=== PATIENT | female | born 1960 | race Caucasian/White ===

== ENCOUNTER 2017-11-16 05:17 | Observation (INO) ==
[2017-11-16] MEDS ORDERED: Sodium Chlor 0.9% Inj 500 ML IV.SIG SCH ×2 (06:00→07:00)
[2017-11-16 06:18] LABS: Baso # (Auto) 0.1 th/mm3 (0.0-0.2); Baso % (Auto) 0.9 % (0.0-2.0); Eos % (Auto) 0.5 % (0.0-4.0); Hematocrit 45.3 % (35.0-46.0); Hemoglobin 15.9 gm/dL (11.6-15.3); Lymph # (Auto) 1.3 th/mm3 (1.0-4.8); Lymph % (Auto) 18.8 % (9.0-44.0); Mean Corpuscular HGB Conc 35.1 % (32.0-36.0); Mean Corpuscular Volume 105.3 fL (80.0-100.0); Mean Platelet Volume 7.8 fL (7.0-11.0); Mono # (Auto) 0.7 th/mm3 (0.0-0.9); Mono % (Auto) 9.7 % (0.0-8.0); Neut # (Auto) 4.9 th/mm3 (1.8-7.7); Neut % (Auto) 70.1 % (16.0-70.0); Platelet Count 178 th/mm3 (150-450); Red Blood Count 4.31 mil/mm3 (4.00-5.30); Red Cell Distribution Width 12.7 % (11.6-17.2)
--- NOTE | 2017-11-16 06:21 | CT ---
EXAM DATE: 11/16/2017 6:02 AM EDT AGE/SEX: 57 years / Female INDICATIONS: Syncope. CLINICAL DATA: This is the patient's initial encounter. Patient reports that signs and symptoms have been present for 1 day and indicates a pain score of 0/10. MEDICAL/SURGICAL HISTORY: Chronic obstructive pulmonary disease. Hypertension. None. RADIATION DOSE: 56.35 CTDI (mGy) COMPARISON: No prior exams available for comparison. TECHNIQUE: CT of the head without contrast. Using automated exposure control and adjustment of the mA and/or kV according to patient size, radiation dose was kept as low as reasonably achievable to ob tain optimal diagnostic quality images. DICOM format image data is available electronically for revi ew and comparison. FINDINGS: Cerebrum: The ventricles are normal. No midline shift, mass lesion, hemorrhage or acute infarction. No extraaxial fluid collections are seen. Posterior Fossa: The cerebellum and brainstem demonstrate no acute abnormality. The 4th ventricle is midline. The cerebellopontine angle is within normal limits. Extracranial: There is partially visualized mucoperiosteal thickening in the right maxillary antrum. Remaining visualized sinuses are clear. Skull: The calvaria is intact. No skull fracture. CONCLUSION: No acute intracranial abnormality is identified. . Electronically signed by: Kareem Ríos MD 11/16/2017 6:20 AM EDT
--- NOTE | 2017-11-16 06:28 | ED ---
HPI General Chief Complaint: Syncope Stated Complaint: Syncope Time Seen by Provider: 11/16/17 06:22 Source: patient and EMS Mode of arrival: EMS Limitations: no limitations History of Present Illness HPI narrative: 56-year-old female presents to the emergency department by EMS transport for evaluation of dizziness with near syncope just prior to arrival to the emergency department. Patient states over the past several weeks she has had intermittent episodes of mild dizziness with fluttering but this was the most prolonged episode and most intense episode. Patient states she felt that she was developing tunneling of her vision and then lost her balance and fell forward hitting her left chest wall against a sign. 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 Mild sweats no shortness of breath no altered mentation. Patient did not experience any weakness right side of the body the left side of the body. Patient does have history of hypertension and has undergone sexual reassignment surgery. Patient admits to half pack of tobacco use daily. Patient has been having diarrhea on and off for approximately 2 months. Patient does not report any weight loss. Event was not witnessed. Patient does complain of left anterior chest wall pain where she struck a sign but does not have any bruising. Patient states prior to hitting her anterior chest wall with a sign she was not expressing any chest pain. Patient also has history of asthma COPD and wheezing. Patient has had cough nonproductive and does not note any fever or chills. According to outside residential sales professional report an EKG was performed which showed sinus rhythm but patient was intermittently monitored and atrial fibrillation with RVR heart rate 100-120 bpm. Patient denies any known history of atrial fibrillation. MD complaint: Reports almost passed out Onset (ago): hour(s) -: minutes(s) Description of event: Denies tonic-clonic movements, post-event confusion, focal shaking, incontinence, stopped breathing and lost pulse Prodromal symptoms: Reports lightheaded, palpitations and diaphoresis; Denies headache, vision changes, chest pain, heart racing, shortness of breath, nausea/ vomiting and vertigo Witnessed: no Context: Reports during exertion Injuries sustained associated with event: Reports chest (Left anterior chest wall) Current symptoms: Reports chest pain; Denies back to baseline, lightheaded, vertigo, headache, shortness of breath, nausea, abdominal pain, fever and weakness History: Denies seizure disorder, previous syncopal episode, seizure disorder, history of CAD, pacemaker, AICD and family history of sudden Treatments prior to arrival: Reports none Related Data Home Medications Medication Instructions Recorded Confirmed No Known Home Medications 11/16/17 11/16/17 Allergies Allergy/AdvReac Type Severity Reaction Status Date / Time Penicillins Allergy Edema Verified 11/16/17 05:29 Review of Systems ROS: all other systems reviewed are negative [facility] Medical History Medical History COPD (chronic obstructive pulmonary disease) (Acute) Chronic asthmatic bronchitis with acute exacerbation (Acute) Hypertension (Acute) Sex reassignment surgery status (Acute) Surgical History Surgical History Hx of hernia repair (Acute) Social History Social History Substance History: No History of Abuse Second Hand Smoke Exposure: Yes Smoking Status: Current every day smoker Tobacco Type: Cigarettes How Often Do You Have a Drink Containing Alcohol: 2 to 3 times a week Recent Travel in [facility] within the Last 8 Weeks: No Recent Out of Country Travel within the Last 8 Weeks: No Immunization History Tetanus Immunization: >5 Years Exam Narrative Exam Narrative: GENERAL: Well-developed well-nourished female in no acute distress no respiratory distress GCS 15 SKIN: Focused skin assessment warm/dry. HEAD: Atraumatic. Normocephalic. EYES: Pupils equal and round. No scleral icterus. No injection or drainage. ENT: No nasal bleeding or discharge. Mucous membranes pink and moist. Airway is patent. NECK: Trachea midline. No JVD. CARDIOVASCULAR: Regular rate and rhythm. No murmur appreciated. Chest wall: No ecchymosis no abrasion no induration tender to palpation left anterior chest wall and area of tenderness consistent with pain associated with deep breathing or cough. RESPIRATORY: No accessory muscle use. Clear to auscultation. Breath sounds equal bilaterally. GASTROINTESTINAL: Abdomen soft, non-tender, nondistended. Hepatic and splenic margins not palpable. MUSCULOSKELETAL: No obvious deformities. No clubbing. No cyanosis. No edema. NEUROLOGICAL: Awake and alert. No obvious cranial nerve deficits. Motor grossly within normal limits. Normal speech. PSYCHIATRIC: Appropriate mood and affect; insight and judgment normal. Course Initial Documented Vital Signs Temperature 99.0 F 11/16/17 05:29 Pulse Rate 113 H 11/16/17 05:29 Respiratory Rate 20 11/16/17 05:29 Blood Pressure 159/93 H 11/16/17 05:29 Pulse Oximetry 95 11/16/17 05:29 Last Documented Vital Signs Temperature 99.0 F 11/16/17 05:33 Pulse Rate 103 H 11/16/17 07:00 Respiratory Rate 20 11/16/17 05:33 Blood Pressure 159/93 H 11/16/17 05:33 Pulse Oximetry 95 11/16/17 06:30 Medical Decision Making MDM Narrative Medical decision making narrative: 57-year-old female with near syncope identified by EMS monitoring to have intermittent atrial fibrillation with RVR patient has been experiencing fluttering in her chest over the past several weeks to months. Patient presents with near syncope this evening and after near syncopal episode struck anterior chest wall against a sign and has had anterior chest wall pain subsequently. Patient denies any shortness of breath. Patient placed on satellite project site monitor IV access obtained specimens collected and sent for resulting patient sent for imaging study. EKG is sinus tachycardia rate is 102 with occasional PAC no atrial fibrillation at this time. No ST elevation. Medical Screen Exam Complete: Yes Emergency Medical Condition: Yes Differential Diagnosis Differential Diagnosis: Near syncope, syncope, arrhythmia, electrolyte disturbance, atrial fibrillation paroxysmal, ACS, [place], electrolyte disturbance, thyroid dysfunction, TIA, CVA, sepsis, pneumonia, PE Medical Records Medical records reviewed: Yes I reviewed the patient's medical records. No prior visit Lab Data Result diagrams: 11/16/17 06:05 11/16/17 06:05 Lab Results 11/16/17 11/16/17 11/16/17 Range/Units 06:05 06:05 06:05 WBC 7.0 (4.0-11.0) th/mm3 RBC 4.31 (4.00-5.30) mil/mm3 Hgb 15.9 H (11.6-15.3) gm/dL Hct 45.3 (35.0-46.0) % MCV 105.3 H (80.0-100.0) fL MCH 37.0 H (27.0-34.0) pg MCHC 35.1 (32.0-36.0) % RDW 12.7 (11.6-17.2) % Plt Count 178 (150-450) th/mm3 MPV 7.8 (7.0-11.0) fL Neut % (Auto) 70.1 H (16.0-70.0) % Lymph % (Auto) 18.8 (9.0-44.0) % [place] % (Auto) 9.7 H (0.0-8.0) % Eos % (Auto) 0.5 (0.0-4.0) % Baso % (Auto) 0.9 (0.0-2.0) % Neut # (Auto) 4.9 (1.8-7.7) th/mm3 Lymph # (Auto) 1.3 (1.0-4.8) th/mm3 [place] # (Auto) 0.7 (0.0-0.9) th/mm3 Eos # (Auto) 0.0 (0.0-0.4) th/mm3 Baso # (Auto) 0.1 (0.0-0.2) th/mm3 WBC Differential . Differential Comment Auto diff final PT 10.3 (9.8-11.6) sec INR 1.0 Ratio APTT 25.4 (24.3-30.1) sec D-Dimer Quant (PE/DVT) 0.53 H (0.00-0.50) mg/L FEU Sodium 139 (136-145) meq/L Potassium 3.5 (3.5-5.1) meq/L Chloride 99 (98-107) meq/L Carbon Dioxide 24.4 (21.0-32.0) meq/L Anion Gap 16 H (5-15) meq/L BUN 8 (7-18) mg/dL Creatinine 0.58 (0.50-1.00) mg/dL Estimated GFR Greater than 89 (>89) mL/min Random Glucose 118 H (74-106) mg/dL Lactic Acid (0.4-2.0) mmol/L Calcium 8.7 (8.5-10.1) mg/dL Magnesium 2.1 (1.5-2.5) mg/dL Total Bilirubin 0.9 (0.2-1.0) mg/dL AST 108 H (15-37) U/L ALT 88 H (10-53) U/L Alkaline Phosphatase 104 (45-117) U/L Troponin I Less than 0.02 L (0.02-0.05) ng/mL Total Protein 7.4 (6.4-8.2) g/dL Albumin 3.6 (3.4-5.0) g/dL TSH (0.358-3.740) uIU/mL Urine Color (Yellw/Straw) Urine Clarity (Clear) Urine pH (5.0-8.5) Ur Specific [place] (1.002-1.035) Urine Protein (Neg-Trace) mg/dL Urine Glucose (UA) (Negative) mg/dL Urine Ketones (Negative) mg/dL Urine Occult Blood (Negative) Urine Nitrate (Negative) Urine Bilirubin (Negative) Urine Urobilinogen (Less than 2) mg/dL Ur Leukocyte Esterase (Negative) Urine RBC (0-3) /hpf Ur Squamous Epith Cells (0-5) /hpf Urine Mucus (Occasional) /lpf Micro UA Comment Ur Microscopic Review Urine Culture Comments 11/16/17 11/16/17 11/16/17 Range/Units 06:15 06:30 07:50 WBC (4.0-11.0) th/mm3 RBC (4.00-5.30) mil/mm3 Hgb (11.6-15.3) gm/dL Hct (35.0-46.0) % MCV (80.0-100.0) fL MCH (27.0-34.0) pg MCHC (32.0-36.0) % RDW (11.6-17.2) % Plt Count (150-450) th/mm3 MPV (7.0-11.0) fL Neut % (Auto) (16.0-70.0) % Lymph % (Auto) (9.0-44.0) % [place] % (Auto) (0.0-8.0) % Eos % (Auto) (0.0-4.0) % Baso % (Auto) (0.0-2.0) % Neut # (Auto) (1.8-7.7) th/mm3 Lymph # (Auto) (1.0-4.8) th/mm3 [place] # (Auto) (0.0-0.9) th/mm3 Eos # (Auto) (0.0-0.4) th/mm3 Baso # (Auto) (0.0-0.2) th/mm3 WBC Differential Differential Comment PT (9.8-11.6) sec INR Ratio APTT (24.3-30.1) sec D-Dimer Quant (PE/DVT) (0.00-0.50) mg/L FEU Sodium (136-145) meq/L Potassium (3.5-5.1) meq/L Chloride (98-107) meq/L Carbon Dioxide (21.0-32.0) meq/L Anion Gap (5-15) meq/L BUN (7-18) mg/dL Creatinine (0.50-1.00) mg/dL Estimated GFR (>89) mL/min Random Glucose (74-106) mg/dL Lactic Acid 1.0 (0.4-2.0) mmol/L Calcium (8.5-10.1) mg/dL Magnesium (1.5-2.5) mg/dL Total Bilirubin (0.2-1.0) mg/dL AST (15-37) U/L ALT (10-53) U/L Alkaline Phosphatase (45-117) U/L Troponin I (0.02-0.05) ng/mL Total Protein (6.4-8.2) g/dL Albumin (3.4-5.0) g/dL TSH 2.390 (0.358-3.740) uIU/mL Urine Color [place] (Yellw/Straw) Urine Clarity Haz[place] H (Clear) Urine pH 5.0 (5.0-8.5) Ur Specific [place] 1.025 (1.002-1.035) Urine Protein 30 H (Neg-Trace) mg/dL Urine Glucose (UA) Negative (Negative) mg/dL Urine Ketones 80 or greater H (Negative) mg/dL Urine Occult Blood Negative (Negative) Urine Nitrate Negative (Negative) Urine Bilirubin Negative (Negative) Urine Urobilinogen 4 or greater (Less than 2) mg/dL Ur Leukocyte Esterase Negative (Negative) Urine RBC Less than 1 (0-3) /hpf Ur Squamous Epith Cells <1 (0-5) /hpf Urine Mucus Many H (Occasional) /lpf Micro UA Comment Culture not ind Ur Microscopic Review Not Reportable Urine Culture Comments Culture not ind Imaging Data Radiologist's impression: Head CT 11/16/17 05:58 CONCLUSION: No acute intracranial abnormality is identified. . Ribs X-Ray 11/16/17 06:21 CONCLUSION: 1. No rib fracture is identified. 2. Retrocardiac opacity at the left lung base may represent a hiatal hernia but imaging features are not diagnostic on this examination. Suggest correlating with any prior outside chest CTs to exclude a more concerning abnormality. If none are available consider elective noncontrast chest CT at some point. Chest CTA 11/16/17 07:56 CONCLUSION: 1. Masslike opacity in the left lower lobe abutting the medial pleura/ posterior mediastinum. This could be related to a mass or some sort of pulmonary sequestration. PET/CT scan recommended to evaluate hypermetabolic activity. 2. Consolidation right middle lobe likely infiltrate. 3. No evidence for pulmonary embolism. ECG Data EKG Prior to Arrival: Yes Interpretation: EKG: Sinus tachycardia rate [address] elevation or injury pattern; occasional PAC noted Discharge Plan Discharge Disposition Patient Disposition: 30 Still Patient Discharge Condition Condition: Stable Discharge Details Diagnosis: Near syncope, Arrhythmia, Lung mass Physicians Team ED Provider: Stacey Gunn Primary Care Provider: UNKNOWN, Rxs /Orders / Referrals /Forms Prescriptions: No Action No Known Home Medications RF: 0 Discharge Interventions Interventions: Vital Signs Last Done: 11/16/17 05:33 Status ED Status: With Doctor
[2017-11-16 06:37] LABS: Activated Partial Thrombo Time 25.4 sec (24.3-30.1); Prothrombin Time 10.3 sec (9.8-11.6)
[2017-11-16 06:38] LABS: Alanine Aminotransferase 88 U/L (10-53); Albumin 3.6 g/dL (3.4-5.0); Anion Gap 16 meq/L (5-15); Aspartate Aminotransferase 108 U/L (15-37); Blood Urea Nitrogen 8 mg/dL (7-18); Calcium 8.7 mg/dL (8.5-10.1); Carbon Dioxide 24.4 meq/L (21.0-32.0); Chloride 99 meq/L (98-107); D-Dimer 0.53 mg/L FEU (0.00-0.50); Glomerular Filtration Rate Greater Than 89 mL/min (>89); Glucose,Random 118 mg/dL (74-106); Magnesium 2.1 mg/dL (1.5-2.5); Potassium 3.5 meq/L (3.5-5.1); Sodium 139 meq/L (136-145)
[2017-11-16 06:42] LABS: Alkaline Phosphatase 104 U/L (45-117); Total Protein 7.4 g/dL (6.4-8.2)
[2017-11-16] MEDS ORDERED: Ketorolac Inj 30 MG/ML (IVP) Vial IV.PUSH ONE (06:42)
--- NOTE | 2017-11-16 06:59 | XR ---
EXAM DATE: 11/16/2017 6:21 AM EDT AGE/SEX: 57 years / Female INDICATIONS: Patient complains of left sided rib pain status post fall. Patient fell landing directl y on left ribs. Painful respirations. CLINICAL DATA: This is the patient's initial encounter. Patient reports that signs and symptoms have been present for 1 day and indicates a pain score of 8/10. MEDICAL/SURGICAL HISTORY: None. None. COMPARISON: No prior exams available for comparison. FINDINGS: Multiple views of the left ribs demonstrate no fracture or acute rib abnormality. No pneumothorax is identified. There is a retrocardiac opacity that does not contain any visible air. Remaining visualiz ed surrounding structures demonstrate no acute finding. CONCLUSION: 1. No rib fracture is identified. 2. Retrocardiac opacity at the left lung base may represent a hiatal hernia but imaging features are not diagnostic on this examination. Suggest correlating with any prior outside chest CTs to exclude a more concerning abnormality. If none are available consider elective noncontrast chest CT at some p oint. Electronically signed by: Kareem Ríos MD 11/16/2017 6:58 AM EDT
[2017-11-16 08:26] LABS: Bilirubin,Urine Negative (Negative); Clarity,Urine Hazy (Clear); Color,Urine Amber (Yellw/Straw); Glucose,Urine (UA) Negative (Negative); Leukocyte Esterase,Urine Negative (Negative); Mucus,Urine Many /lpf (Occasional); Nitrite,Urine Negative (Negative); Specific Gravity,Urine 1.025 (1.002-1.035); Squamous Epithelial Cell,Urine <1 /hpf (0-5); Urobilinogen,Urine 4 or Greater mg/dL (Less than 2)
--- NOTE | 2017-11-16 08:43 | CT ---
EXAM DATE: 11/16/2017 8:12 AM EDT AGE/SEX: 57 years / Female INDICATIONS: Shortness of breath, chest pain. CLINICAL DATA: This is the patient's initial encounter. Patient reports that signs and symptoms have been present for 1 day and indicates a pain score of 8/10. MEDICAL/SURGICAL HISTORY: Chronic obstructive pulmonary disease. Hypertension. None. RADIATION DOSE: 21.55 CTDI (mGy) COMPARISON: [facility], RIBS LEFT MIN 3V W EXP CHEST, 11/16/2017. . TECHNIQUE: Volumetric scanning was performed using a multi-row detector CT scanner during bolus infu ant of 75 ml Omnipaque 350 (iohexol) nonionic water-soluble contrast as a single exam dose. The phuong a was post processed with a variety of visualization algorithms including full volume maximum intensi ty projection and sliding thin slab reformation. Using automated exposure control and adjustment of t he mA and/or kV according to patient size, radiation dose was kept as low as reasonably achievable to obtain optimal diagnostic quality images. DICOM format image data is available electronically for r eview and comparison. FINDINGS: Pulmonary Arteries: No filling defects are seen in the pulmonary arteries out to the subsegmental ve ssels. The left and right pulmonary arteries are normal in diameter. Lung: Consolidation within the anteromedial right middle lobe. There is also masslike opacity within the left lower lobe medially abutting the mediastinum measuring 5.9 x 6.3 x 6.3 cm.. Effusion: None. Mediastinum: No evidence of mediastinal or hilar adenopathy. Calcified mediastinal and hilar adenopa thy. Other: The axilla is unremarkable. The liver is decreased in attenuation. CONCLUSION: 1. Masslike opacity in the left lower lobe abutting the medial pleura/posterior mediastinum. This co uld be related to a mass or some sort of pulmonary sequestration. PET/CT scan recommended to evaluate hypermetabolic activity. 2. Consolidation right middle lobe likely infiltrate. 3. No evidence for pulmonary embolism. Electronically signed by: Patrick France MD 11/16/2017 8:42 AM EDT
--- NOTE | 2017-11-16 08:46 | ECG ---
Date Performed: 11/16/2017 Time Performed: 06:00:41 PTAGE: 57 years EKG: SINUS TACHYCARDIA WITH OCCASIONAL SUPRAVENTRICULAR PREMATURE COMPLEXES ABNORMAL RHYTHM ECG NO PREVIOUS TRACING DOCTOR: Jeovany Nicholson Interpretating Date/Time 11/16/2017 08:45:37
[2017-11-16] MEDS ORDERED: Morphine Inj 4 MG/ML Vial IV.PUSH ONE (08:49)
[2017-11-16] MEDS: Sod Chloride 0.9% Inj 1,000 ML IV.CONT SCH ×2 (10:33→18:30)
--- NOTE | 2017-11-16 12:19 | US ---
EXAM DATE: 11/16/2017 12:00 AM EDT AGE/SEX: 57 years / Female INDICATIONS: Syncope. CLINICAL DATA: This is the patient's initial encounter. Patient reports that signs and symptoms have been present for 1 day and indicates a pain score of 3/10. MEDICAL/SURGICAL HISTORY: Chronic obstructive pulmonary disease. Hypertension. Sex reassignmen t surgery status. Chronic asthmatic bronchitis. . Hernia repair. COMPARISON: No prior exams available for comparison. VELOCITY PARAMETERS: ICA/CCA Ratio: Right 0.81 , Left 0.68 ICA: Right 77 cm/sec, Left 90 cm/sec CCA: Right 94 cm/sec, Left 131 cm/sec ECA: Right 95 cm/sec, Left 117 cm/sec Vertebral: Right 70 cm/sec antegrade, Left 81 cm/sec antegrade FINDINGS: Right Carotid: No significant plaque is visualized.The waveforms are within normal limits. Left Carotid: No significant plaque is visualized. The waveforms are within normal limits. Other: None. CONCLUSION: No hemodynamic significant stenosis in either carotid artery Electronically signed by: Patrick France MD 11/16/2017 12:17 PM EDT
--- NOTE | 2017-11-16 14:29 | P.HPIM ---
History of Present Illness Primary Care Physician: UNKNOWN History of Present Illness: Mrs Almeida is a 57 year old female. She has a history of HTN and COPD. 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 She is here due to a syncopal episode, which caused her some chest trauma during the fall forward. She also reports that she has been having frequent diarrhea for about 2 months. She also has persistent diaphoresis. Joni, and possibly related to her syncopal episode, she is developed bilateral ear congestion and a cough. 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 This may be responsible for a mass/anomaly seen on CTA imaging. TSH is within normal limits. Slight elevations in LFTs (drinks 2 beers per day). No other complaints. - Diagnosis (1) Syncope (2) Arrhythmia (3) Lung mass Review of Systems Constitutional: No fevers, no chills no night sweats, no fatigue, no weakness Eyes: No eye pain, no blurry vision, no loss of vision ENT: No sore throat, no ear pain, no rhinorrhea Cardiovascular: No chest pain, no tachycardia, no palpitations, no shortness of breath, syncope Respiratory: No wheezing, no cough, no shortness of breath Gastrointestinal: No abdominal pain, no black tarry stools, no bright red blood per rectum, no vomiting, no diarrhea Musculoskeletal: No joint pain, no muscle cramps, no stiffness Integumentary: No rash, no ulcers, no drainage Neurologic: No sensory loss, no loss of motor function, no dizziness Psychiatric: No behavioral changes, no hallucinations, no suicidal ideations [facility] - History History Provided By: Patient - Medical History Medical History: Medical History (Last Reviewed 11/16/17 @ 06:26 by Stacey Gunn MD) COPD (chronic obstructive pulmonary disease) Chronic asthmatic bronchitis with acute exacerbation Hypertension Sex reassignment surgery status - Surgical History Surgical History: Surgical History (Last Reviewed 11/16/17 @ 06:26 by Stacey Gunn MD) Hx of hernia repair - Family History Family History: Family History (Last Updated 11/16/17 @ 14:23 by You Kumar MD) Other Osteoarthritis - Tobacco History Second Hand Smoke Exposure: No Tobacco Use In Past 30 Days: Yes Smoking Status: Current every day smoker Tobacco Type: Cigarettes - Alcohol History How Often Do You Have a Drink Containing Alcohol: 2 to 3 times a week - Substance Use History Substance History: No History of Abuse - Travel History Recent Travel in the [place] Within the Last 8 Weeks: No Recent Travel Out of the Country Within the Last 8 Weeks: No - Immunization History Tetanus Immunization: >5 Years Medications and Allergies Active Medications: Active Medications Al Hydroxide/Mg Hydroxide (Milk Of Magnesia Liq) 30 ml PO Q12H PRN PRN Reason: Mild Constipation Sodium Chloride (Ns Inj) 500 mls @ 0 mls/hr IV.SIG BOLUS JOANA Last Infusion: 11/16/17 06:49 Dose: Infused Sodium Chloride (Ns Inj) 500 mls @ 0 mls/hr IV.SIG BOLUS JOANA Sodium Chloride (Ns Inj) 1,000 mls @ 100 mls/hr IV.CONT .Q10H JOANA Last Admin: 11/16/17 10:33 Dose: 100 mls/hr Ondansetron HCl (Zofran Inj) 4 mg IV.PUSH Q6H PRN PRN Reason: NAUSEA OR VOMITING Allergies Allergy/AdvReac Type Severity Reaction Status Date / Time Penicillins Allergy Edema Verified 11/16/17 05:29 Home Medications Medication Instructions Recorded Confirmed Type Probiotic Acidophilus 11/16/17 History Exam Vital signs: Vital Signs 11/16/17 05:29 11/16/17 05:33 11/16/17 06:30 Temperature 99.0 F 99.0 F Pulse Rate 113 H 109 H Respiratory Rate 20 20 Blood Pressure 159/93 H 159/93 H Pulse Oximetry 95 94 L 95 11/16/17 07:00 11/16/17 07:20 11/16/17 08:58 Temperature 98 F Pulse Rate 103 H 106 H Respiratory Rate 17 20 Blood Pressure 155/82 H Pulse Oximetry 97 11/16/17 09:00 11/16/17 09:30 11/16/17 10:01 Temperature 97.9 F 97.9 F Pulse Rate 101 H 100 H Respiratory Rate 20 20 20 Blood Pressure 143/82 H 147/86 H Pulse Oximetry 96 97 11/16/17 10:33 11/16/17 10:48 11/16/17 11:15 Temperature 97.8 F 98.4 F Pulse Rate 101 H 87 Respiratory Rate 20 20 Blood Pressure 143/81 H 193/90 H 148/80 H Pulse Oximetry 97 95 Intake & Output 11/15/17 11/16/17 11/16/17 18:59 06:59 18:59 Intake Total 500 / 500 Balance 500 / 500 Weight 96.162 kg 96.162 kg Intake: IV 500 / 500 NS Inj 500 ML @ Wide Open IV. 500 / 500 SIG BOLUS JOANA Rx#:[id number] Other: Date of Last Bowel Movement 11/16/17 Weight On Admission 96.162 kg Narrative: GENERAL: NAD, A&Ox3 HEAD: Normocephalic. NECK: Supple, trachea midline. No lymphadenopathy. EYES: No scleral icterus. No injection or drainage. CARDIOVASCULAR: Regular rate and rhythm without murmurs, gallops, or rubs. RESPIRATORY: Breath sounds equal bilaterally. No accessory muscle use. GASTROINTESTINAL: Abdomen soft, non-tender, nondistended. MUSCULOSKELETAL: No cyanosis, or edema. SKIN: Warm and dry. NEURO: No focal neurological deficits. Results - Labs CBC & Chem 7: 11/16/17 06:05 11/16/17 06:05 Labs: Short CBC 11/16/17 Range/Units 06:05 WBC 7.0 (4.0-11.0) th/mm3 Hgb 15.9 H (11.6-15.3) gm/dL Hct 45.3 (35.0-46.0) % Plt Count 178 (150-450) th/mm3 BMP 11/16/17 06:05 Sodium 139 Potassium 3.5 Chloride 99 Carbon Dioxide 24.4 BUN 8 Creatinine 0.58 Calcium 8.7 Cardiac Enzymes 11/16/17 Range/Units 06:05 Troponin I Less than 0.02 L (0.02-0.05) ng/mL Liver Function 11/16/17 Range/Units 06:05 Total Bilirubin 0.9 (0.2-1.0) mg/dL AST 108 H (15-37) U/L ALT 88 H (10-53) U/L Alkaline Phosphatase 104 (45-117) U/L Albumin 3.6 (3.4-5.0) g/dL Urine 11/16/17 Range/Units 07:50 Urine Color Milvia (Yellw/Straw) Urine Clarity Hazy H (Clear) Urine pH 5.0 (5.0-8.5) Ur Specific Alvin 1.025 (1.002-1.035) Urine Protein 30 H (Neg-Trace) mg/dL Urine Glucose (UA) Negative (Negative) mg/dL - Imaging Impressions Carotid Doppler Study 11/16/17 00:00 CONCLUSION: No hemodynamic significant stenosis in either carotid artery Head CT 11/16/17 05:58 CONCLUSION: No acute intracranial abnormality is identified. . Ribs X-Ray 11/16/17 06:21 CONCLUSION: 1. No rib fracture is identified. 2. Retrocardiac opacity at the left lung base may represent a hiatal hernia but imaging features are not diagnostic on this examination. Suggest correlating with any prior outside chest CTs to exclude a more concerning abnormality. If none are available consider elective noncontrast chest CT at some point. Chest CTA 11/16/17 07:56 CONCLUSION: 1. Masslike opacity in the left lower lobe abutting the medial pleura/ posterior mediastinum. This could be related to a mass or some sort of pulmonary sequestration. PET/CT scan recommended to evaluate hypermetabolic activity. 2. Consolidation right middle lobe likely infiltrate. 3. No evidence for pulmonary embolism. Caprini VTE Risk Assessment Caprini VTE Risk Assessment: No/Low Risk (score <= 1) Caprini Risk Assessment Model: Point Value = 1 Point Value = 2 Point Value = 3 Point Value = 5 Age 41-60 Minor surgery BMI > 25 kg/m2 Swollen legs Varicose veins or History of unexplained or recurrent spontaneous Oral contraceptives or hormone replacement Sepsis (< 1 month) Serious lung disease, including pneumonia (< 1 month) Abnormal pulmonary function Acute myocardial infarction Congestive heart failure (< 1 month) History of inflammatory bowel disease Medical patient at bed rest Age 61-74 Arthroscopic surgery Major open surgery (> 45 min) Laparoscopic surgery (> 45 min) Malignancy Confined to bed (> 72 hours) Immobilizing plaster cast Central venous access Age >= 75 History of VTE Family history of VTE Factor V Leiden Prothrombin [id number] Lupus anticoagulant Anticardiolipin antibodies Elevated serum homocysteine Heparin-induced thrombocytopenia Other congenital or acquired thrombophilia Stroke (< 1 month) Elective arthroplasty Hip, pelvis, or leg fracture Acute spinal cord injury (< 1 month) Prophylaxis Regimen: Total Risk Factor Score Risk Level Prophylaxis Regimen 0-1 Low Early ambulation 2 Moderate Order ONE of the following: *Sequential Compression Device (SCD) *Heparin 5000 units SQ BID 3-4 Higher Order ONE of the following medications: *Heparin 5000 units SQ TID *Enoxaparin/Lovenox 40 mg SQ daily (WT < 150 kg, CrCl > 30 mL/min) *Enoxaparin/Lovenox 30 mg SQ daily (WT < 150 kg, CrCl > 10-29 mL/min) *Enoxaparin/Lovenox 30 mg SQ BID (WT < 150 kg, CrCl > 30 mL/min) AND/OR *Sequential Compression Device (SCD) 5 or more Highest Order ONE of the following medications: *Heparin 5000 units SQ TID (Preferred with Epidurals) *Enoxaparin/Lovenox 40 mg SQ daily (WT < 150 kg, CrCl > 30 mL/min) *Enoxaparin/Lovenox 30 mg SQ daily (WT < 150 kg, CrCl > 10-29 mL/min) *Enoxaparin/Lovenox 30 mg SQ BID (WT < 150 kg, CrCl > 30 mL/min) AND *Sequential Compression Device (SCD) Assessment and Plan - Assessment (1) Syncope Code(s): R55 - Syncope and collapse Status: Acute (2) Arrhythmia Code(s): I49.9 - Cardiac arrhythmia, unspecified Status: Acute (3) Lung mass Code(s): R91.8 - Other nonspecific abnormal finding of lung field Status: Acute - Plan 57-year-old female admitted secondary to syncopal episode Syncope Possible Arrhythmia Echocardiogram Bilateral carotid ultrasound shows no stenosis Orthostatic blood pressure checks pending Follow on telemetry Lung Mass Present on CTA of chest May be congenital based on history NM Bone scan added for further evaluation of metabolic activity Chronic Diarrhea Screen for C. Diff Screen for O&P Follow electrolytes Lomotil trial Chronic Diaphoresis TSH is within normal limits today Check estrogen and testosterone levels (patient is transgendered) Screen for tick bourne illnesses Sinus congestion Bronchitis No evidence of bacterial infection Antihistamine Antitussive PRN Hypertension Continue baseline treatment Follow blood pressures Adjust treatments as needed As needed Vasotec IV COPD As needed albuterol No exacerbation DVT prophylaxis SCDs H&P: Quality - VTE Deep Vein Thrombosis/Pulmonary Embolism Present on Admission: No
[2017-11-16] MEDS ORDERED: RESP: Albuterol Concentrated 2.5 MG/0.5 ML Neb NEB PRN (17:02)
--- NOTE | 2017-11-16 17:54 | ECHRPT ---
Indication: Syncope CONCLUSIONS The left ventricular systolic function is normal with an estimated ejection fraction in the range of 55-60%. No regional wall motion abnormalities. Grade 1 Diastolic Dysfunction. The left atrial size is mildly dilated. No significant valve disease. The estimated pulmonary arterial pressure is 41 mmHg. BP: / HR: Rhythm: MEASUREMENTS (Male / Female) Normal Values Technical Quality:Technically difficult study 2D ECHO LV Diastolic Diameter PLAX 4.8 cm 4.2 - 5.9 / 3.9 - 5.3 cm LV Systolic Diameter PLAX 3.4 cm IVS Diastolic Thickness 1.2 cm 0.6 - 1.0 / 0.6 - 0.9 cm LVPW Diastolic Thickness 1.3 cm 0.6 - 1.0 / 0.6 - 0.9 cm LV Relative Wall Thickness 0.5 RV Internal Dim ED PLAX 2.8 cm LVOT Diameter 2.2 cm Aortic Root Diameter 3.1 cm LA Systolic Diameter LX 4.0 cm 3.0 - 4.0 / 2.7 - 3.8 cm M-MODE AV Cusp Separation MM 2.2 cm DOPPLER AV Peak Velocity 125.0 cm/s AV Peak Gradient 6.3 mmHg LVOT Peak Velocity 111.0 cm/s LVOT Peak Gradient 4.9 mmHg AV Area Cont Eq pk 3.4 cm Mitral E Point Velocity 54.3 cm/s Mitral A Point Velocity 71.1 cm/s Mitral E to A Ratio 0.8 LV E' Lateral Velocity 9.1 cm/s Mitral E to LV E' Lateral Ratio 6.0 LV E' Septal Velocity 6.9 cm/s Mitral E to LV E' Septal Ratio 7.8 TR Peak Velocity 278.0 cm/s TR Peak Gradient 30.9 mmHg Right Atrial Pressure 10.0 mmHg Pulmonary Artery Systolic Pressu 40.9 mmHg Right Ventricular Systolic Press 40.9 mmHg PV Peak Velocity 102.0 cm/s PV Peak Gradient 4.2 mmHg FINDINGS LEFT VENTRICLE Normal left ventricular size. Mild concentric left ventricular hypertrophy. The left ventricular systolic function is normal with an estimated ejection fraction in the range of 55-60%. RIGHT VENTRICLE Normal right ventricular size and systolic function. LEFT ATRIUM The left atrial size is mildly dilated. RIGHT ATRIUM The right atrial size is normal. ATRIAL SEPTUM Normal atrial septal thickness without atrial level shunting by limited color doppler interrogation. AORTA The aortic root and proximal ascending aorta are normal in size on limited imaging. MITRAL VALVE Structurally normal mitral valve. No mitral valve stenosis or regurgitation. AORTIC VALVE Trileaflet aortic valve. No aortic valve stenosis or regurgitation. TRICUSPID VALVE There is trace tricuspid valve regurgitation. The estimated pulmonary arterial pressure is 41 mmHg. PULMONARY VALVE No pulmonary valve regurgitation or stenosis. VESSELS The inferior vena cava is normal in size. PERICARDIUM No pericardial effusion. Tali Ortiz MD (Electronically Signed) Final Date:16 November 2017 17:53
[2017-11-16] MEDS: Diphenoxylate/Atropine 2.5/0.025 MG Tablet PO SCH (18:30)
[2017-11-16 19:34] LABS: Amphetamine Screen,Urine Neg (Neg); Barbiturate Screen,Urine Neg (Neg); Cannabinoid Screen,Urine Neg (Neg); Cocaine Screen,Urine Neg (Neg)
[2017-11-16 19:45] LABS: Opiate Screen,Urine Neg (Neg)
[2017-11-16] MEDS: Loratadine 10 MG Tablet PO SCH (20:30)
[2017-11-16 23:21] LABS: Hepatitis A IgM Antibody Nonreactive (Nonreactive); Hepatitits B Surface Antigen Nonreactive (Nonreactive)
[2017-11-17] MEDS: Diphenoxylate/Atropine 2.5/0.025 MG Tablet PO SCH ×3 (00:49→11:55)
[2017-11-17] MEDS: Melatonin 5 MG Tablet PO PRN (01:22)
[2017-11-17] MEDS: Sod Chloride 0.9% Inj 1,000 ML IV.CONT SCH ×3 (05:16→18:51)
[2017-11-17] MEDS: Loratadine 10 MG Tablet PO SCH (09:12)
[2017-11-17] MEDS ORDERED: Naloxone Inj 0.4 MG/ML Vial IV.PUSH PRN (13:13)
[2017-11-17] MEDS ORDERED: Morphine Sulfate Inj 2 MG/ML Vial IV.PUSH PRN (13:13)
[2017-11-17] MEDS ORDERED: Diatrizoate Meglum/Diatrizoate Sod Liq 9 ML UDC PO ONE (14:54)
--- NOTE | 2017-11-17 15:32 | NM ---
INDICATIONS: Neoplasm. Evaluate for hyperactivity at left lung and/or metastatic evidence. CLINICAL DATA: This is the patient's initial encounter. Patient reports that signs and symptoms have been present for 1 week and indicates a pain score of 2/10. MEDICAL/SURGICAL HISTORY: Chronic obstructive pulmonary disease. Hypertension. Chronic asthmat ic bronchitis with acute exacerbation. . History of hernia repair. Sex reassignment surgery status. COMPARISON: No prior exams available for comparison. TECHNIQUE: . Blood pool imaging was performed after injection of radiotracer.. Whole body bone scan was performed at 2-3 hours. No correlative bone scan available for comparison. DOSE: 30.2 mCi Tc99m MDP IV FINDINGS: Whole body bone scan demonstrates no suspicious uptake in the axial or appendicular skeleton. There i s symmetrical renal function. No focal areas of increased or decreased uptake are seen. CONCLUSION: 1. Negative whole body bone scan of metastatic disease Electronically signed by: Anthony Padilla MD 11/17/2017 3:31 PM EDT
--- NOTE | 2017-11-17 15:37 | P.CONGI ---
History of Present Illness Consult date: 11/17/17 Consult reason: Elevated liver enzymes, abdominal bloating Chief complaint: Near Syncope,suspected new onset afib,lung mass History of Present Illness: Mrs. Almeida is a 57-year-old female with a medical history of hypertension and COPD. Patient presented to the emergency room at [facility] on 11/16 with complaint of having had a syncopal episode, with chest wall discomfort after falling forward. At this time patient also reported that she has been having loose watery stools for 2-1/2 months with abdominal bloating. This service has been consulted to evaluate patient's elevated liver enzymes as well as abdominal bloating. Patient also reports increasing diaphoresis and nausea without vomiting over a 2-month time span. She reports using Pepto- Bismol with [id number] probiotics with no improvement of symptoms. Patient denies any noted bleeding in stools. Patient reports occasional heartburn whenever she eats tomato based products, denies taking any medication for same states she just "avoids the triggers". Patient denies any dysphagia or odynophagia with swallowing. Does endorse that she has history of hiatal hernia. Family history positive for colon cancer-patient's father. Patient reports that she smokes 1/2 pack/day cigarettes and drinks 2 beers daily each morning after work. 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 Patient denies ever having had an EGD or colonoscopy. 11/16/2017 CT chest performed with the following findings--> Masslike opacity in the left lower lobe abutting the medial pleura/posterior mediastinum. This could be related to a mass or some sort of pulmonary sequestration. PET/CT scan recommended to evaluate hypermetabolic activity. Consolidation right middle lobe likely infiltrate. No evidence for pulmonary embolism . Of note patient states that she was diagnosed with a cyst in her chest as a child. CT scan of abdomen and pelvis ordered and pending at this time. WBC 7.0 hemoglobin 15.9 hematocrit 45.3 platelet count 178 INR 1.0 total bilirubin 0.9 AST 108 ALT 88 alk phos 104. <Stephanie Soliz - Last Filed: 11/17/17 15:08> Review of Systems All other systems reviewed negative except as stated in HPI <Stephanie Soliz - Last Filed: 11/17/17 15:08> PMFSH - History History Provided By: Patient - Medical History Medical History: Medical History (Last Reviewed 11/16/17 @ 06:26 by Stacey Gunn MD) COPD (chronic obstructive pulmonary disease) Chronic asthmatic bronchitis with acute exacerbation Hypertension Sex reassignment surgery status - Surgical History Surgical History: Surgical History (Last Reviewed 11/16/17 @ 06:26 by Stacey Gunn MD) Hx of hernia repair - Family History Family History: Family History (Last Updated 11/16/17 @ 14:23 by You Kumar MD) Other Osteoarthritis - Tobacco History Second Hand Smoke Exposure: No Tobacco Use In Past 30 Days: Yes Smoking Status: Current every day smoker Tobacco Type: Cigarettes - Alcohol History How Often Do You Have a Drink Containing Alcohol: 2 to 3 times a week - Substance Use History Substance History: No History of Abuse - Travel History Recent Travel in the [place] Within the Last 8 Weeks: No Recent Travel Out of the Country Within the Last 8 Weeks: No - Immunization History Tetanus Immunization: >5 Years <Stephanie Soliz - Last Filed: 11/17/17 15:08> - Medical History Medical History: Medical History (Last Reviewed 11/16/17 @ 06:26 by Stacey Gunn MD) COPD (chronic obstructive pulmonary disease) Chronic asthmatic bronchitis with acute exacerbation Hypertension Sex reassignment surgery status - Surgical History Surgical History: Surgical History (Last Reviewed 11/16/17 @ 06:26 by Stacey Gunn MD) Hx of hernia repair - Family History Family History: Family History (Last Updated 11/16/17 @ 14:23 by You Kumar MD) Other Osteoarthritis <Bobbi Durant - Last Filed: 11/17/17 15:54> Medications and Allergies Active Medications: Active Medications Hydrocodone Bitart/Acetaminophen ([place] 5/325) 1 tab PO Q4H PRN PRN Reason: Pain 3 to 6 Hydrocodone Bitart/Acetaminophen ([place] 10/325) 1 tab PO Q4H PRN PRN Reason: Pain 7 to 10 Last Admin: 11/17/17 11:54 Dose: 1 tab Al Hydroxide/Mg Hydroxide (Milk Of Magnesia Liq) 30 ml PO Q12H PRN PRN Reason: Mild Constipation Albuterol (Duoneb Neb (Prn)) 1 ampul NEB Q6HR NEB PRN PRN Reason: WHEEZING Enalaprilat (Vasotec Inj) 1.25 mg IV.PUSH Q6H PRN PRN Reason: SBP>160, DBP>90 Guaifenesin (Robitussin Liq) 100 mg PO Q6HR PRN PRN Reason: COUGH Last Admin: 11/17/17 09:14 Dose: 100 mg Sodium Chloride (Ns Inj) 500 mls @ 0 mls/hr IV.SIG BOLUS JOANA Last Infusion: 11/16/17 06:49 Dose: Infused Sodium Chloride (Ns Inj) 500 mls @ 0 mls/hr IV.SIG BOLUS JOANA Sodium Chloride (Ns Inj) 1,000 mls @ 100 mls/hr IV.CONT .Q10H JOANA Last Infusion: 11/17/17 13:40 Dose: 0 mls/hr Loratadine (Claritin) 10 mg PO DAILY JOANA Last Admin: 11/17/17 09:12 Dose: 10 mg Melatonin (Melatonin) 5 mg PO HS PRN PRN Reason: INSOMNIA Last Admin: 11/17/17 01:22 Dose: 5 mg Morphine Sulfate (Morphine Inj) 2 mg IV.PUSH Q3H PRN PRN Reason: BREAKTHROUGH PAIN Last Admin: 11/17/17 14:17 Dose: 2 mg Naloxone HCl (Narcan Inj) 0.4 mg IV.PUSH UNSCH PRN PRN Reason: SEE LABEL COMMENTS Ondansetron HCl (Zofran Inj) 4 mg IV.PUSH Q6H PRN PRN Reason: NAUSEA OR VOMITING <Stephanie Soliz - Last Filed: 11/17/17 15:08> Active Medications: Active Medications Hydrocodone Bitart/Acetaminophen ([place] 5/325) 1 tab PO Q4H PRN PRN Reason: Pain 3 to 6 Hydrocodone Bitart/Acetaminophen ([place] 10/325) 1 tab PO Q4H PRN PRN Reason: Pain 7 to 10 Last Admin: 11/17/17 11:54 Dose: 1 tab Al Hydroxide/Mg Hydroxide (Milk Of Magnesia Liq) 30 ml PO Q12H PRN PRN Reason: Mild Constipation Albuterol (Duoneb Neb (Prn)) 1 ampul NEB Q6HR NEB PRN PRN Reason: WHEEZING Enalaprilat (Vasotec Inj) 1.25 mg IV.PUSH Q6H PRN PRN Reason: SBP>160, DBP>90 Guaifenesin (Robitussin Liq) 100 mg PO Q6HR PRN PRN Reason: COUGH Last Admin: 11/17/17 09:14 Dose: 100 mg Sodium Chloride (Ns Inj) 500 mls @ 0 mls/hr IV.SIG BOLUS JOANA Last Infusion: 11/16/17 06:49 Dose: Infused Sodium Chloride (Ns Inj) 500 mls @ 0 mls/hr IV.SIG BOLUS JOANA Sodium Chloride (Ns Inj) 1,000 mls @ 100 mls/hr IV.CONT .Q10H JOANA Last Admin: 11/17/17 15:32 Dose: Not Given Loratadine (Claritin) 10 mg PO DAILY JOANA Last Admin: 11/17/17 09:12 Dose: 10 mg Melatonin (Melatonin) 5 mg PO HS PRN PRN Reason: INSOMNIA Last Admin: 11/17/17 01:22 Dose: 5 mg Morphine Sulfate (Morphine Inj) 2 mg IV.PUSH Q3H PRN PRN Reason: BREAKTHROUGH PAIN Last Admin: 11/17/17 14:17 Dose: 2 mg Naloxone HCl (Narcan Inj) 0.4 mg IV.PUSH UNSCH PRN PRN Reason: SEE LABEL COMMENTS Ondansetron HCl (Zofran Inj) 4 mg IV.PUSH Q6H PRN PRN Reason: NAUSEA OR VOMITING <Bobbi Durant - Last Filed: 11/17/17 15:54> Allergies Allergy/AdvReac Type Severity Reaction Status Date / Time Penicillins Allergy Edema Verified 11/16/17 05:29 Home Medications Medication Instructions Recorded Confirmed Type Probiotic Acidophilus 11/16/17 History Exam Vital signs: Vital Signs 11/16/17 16:21 11/16/17 19:50 11/16/17 20:00 Temperature 97.8 F 98.3 F Pulse Rate 81 100 H 92 H Respiratory Rate 20 18 Blood Pressure 153/88 H 138/76 Pulse Oximetry 92 L 95 11/16/17 20:29 11/17/17 00:00 11/17/17 00:49 Temperature 97.8 F Pulse Rate 90 Respiratory Rate 16 18 18 Blood Pressure 139/87 Pulse Oximetry 93 L 11/17/17 04:00 11/17/17 08:00 11/17/17 12:00 Temperature 97.8 F 97.8 F 98.3 F Pulse Rate 81 78 86 Respiratory Rate 18 18 18 Blood Pressure 138/86 135/83 141/87 H Pulse Oximetry 97 95 92 L Intake & Output 11/16/17 11/17/17 11/17/17 18:59 06:59 18:59 Intake Total 1369 / 1369 1000 / 1000 Balance 1369 / 1369 1000 / 1000 Weight 96.162 kg Intake: IV 769 / 769 1000 / 1000 NS Inj 1,000 ML @ 100 mls/hr IV 769 / 769 1000 / 1000 .CONT .Q10H JOANA Rx#:[id number] Oral 600 / 600 Other: # Voids 3 Date of Last Bowel Movement 11/16/17 11/16/17 11/16/17 Weight On Admission 96.162 kg - Constitutional no acute distress - Routine HEENT Exam Head: Present: normocephalic Eye: Absent: conjunctival icterus - Routine Neck Exam Present: supple - Routine Chest/Breast/Axilla Exam Chest wall: Present: tenderness - Routine Respiratory Exam Present: CTA bilaterally. Absent: accessory muscle use - Routine Abdominal Exam Present: soft, normoactive bowel sounds, distended. Absent: tenderness, guarding - Routine Extremities Exam Present: full ROM, pulses intact. Absent: edema - Routine Skin Exam Present: dry, warm. Absent: jaundice - Routine Neurological Exam Present: alert, oriented X3 <Soliz,Stephanie - Last Filed: 11/17/17 15:08> Vital signs: Vital Signs 11/16/17 16:21 11/16/17 19:50 11/16/17 20:00 Temperature 97.8 F 98.3 F Pulse Rate 81 100 H 92 H Respiratory Rate 20 18 Blood Pressure 153/88 H 138/76 Pulse Oximetry 92 L 95 11/16/17 20:29 11/17/17 00:00 11/17/17 00:49 Temperature 97.8 F Pulse Rate 90 Respiratory Rate 16 18 18 Blood Pressure 139/87 Pulse Oximetry 93 L 11/17/17 04:00 11/17/17 08:00 11/17/17 12:00 Temperature 97.8 F 97.8 F 98.3 F Pulse Rate 81 78 86 Respiratory Rate 18 18 18 Blood Pressure 138/86 135/83 141/87 H Pulse Oximetry 97 95 92 L Intake & Output 11/16/17 11/17/17 11/17/17 18:59 06:59 18:59 Intake Total 1369 / 1369 1000 / 1000 Balance 1369 / 1369 1000 / 1000 Weight 96.162 kg Intake: IV 769 / 769 1000 / 1000 NS Inj 1,000 ML @ 100 mls/hr IV 769 / 769 1000 / 1000 .CONT .Q10H JOANA Rx#:[id number] Oral 600 / 600 Other: # Voids 3 Date of Last Bowel Movement 11/16/17 11/16/17 11/16/17 Weight On Admission 96.162 kg <Bobbi Durant - Last Filed: 11/17/17 15:54> Results - Labs CBC & Chem 7: 11/16/17 06:05 11/16/17 06:05 Labs: Laboratory Results - last 24 hr 11/16/17 11/16/17 11/16/17 06:46 07:50 18:58 POC Glucose 133 H Stl C.difficile DNA Amp Negative St C. diff Tox Epid 027 Negative Urine Opiates Screen Neg Ur Barbiturates Screen Neg Ur Amphetamines Screen Neg U Benzodiazepines Scrn Neg Urine Cocaine Screen Neg U Cannabinoids Screen Neg Hepatitis A IgM Ab Hep Bs Antigen Hep B Core IgM Ab Hep C IgG Ab 11/16/17 21:23 POC Glucose Stl C.difficile DNA Amp St C. diff Tox Epid 027 Urine Opiates Screen Ur Barbiturates Screen Ur Amphetamines Screen U Benzodiazepines Scrn Urine Cocaine Screen U Cannabinoids Screen Hepatitis A IgM Ab Nonreactive Hep Bs Antigen Nonreactive Hep B Core IgM Ab Nonreactive Hep C IgG Ab Nonreactive <Stephanie Soliz - Last Filed: 11/17/17 15:08> - Labs CBC & Chem 7: 11/16/17 06:05 11/16/17 06:05 Labs: Laboratory Results - last 24 hr 11/16/17 11/16/17 11/16/17 06:46 07:50 18:58 POC Glucose 133 H Stl C.difficile DNA Amp Negative St C. diff Tox Epid 027 Negative Urine Opiates Screen Neg Ur Barbiturates Screen Neg Ur Amphetamines Screen Neg U Benzodiazepines Scrn Neg Urine Cocaine Screen Neg U Cannabinoids Screen Neg Hepatitis A IgM Ab Hep Bs Antigen Hep B Core IgM Ab Hep C IgG Ab 11/16/17 21:23 POC Glucose Stl C.difficile DNA Amp St C. diff Tox Epid 027 Urine Opiates Screen Ur Barbiturates Screen Ur Amphetamines Screen U Benzodiazepines Scrn Urine Cocaine Screen U Cannabinoids Screen Hepatitis A IgM Ab Nonreactive Hep Bs Antigen Nonreactive Hep B Core IgM Ab Nonreactive Hep C IgG Ab Nonreactive - Imaging Impressions Bone Scan Nuclear Medicine 11/17/17 00:00 CONCLUSION: 1. Negative whole body bone scan of metastatic disease <Bobbi Durant - Last Filed: 11/17/17 15:54> Assessment and Plan (1) Elevated liver enzymes Status: Acute Code(s): R74.8 - Abnormal levels of other serum enzymes (2) Abdominal bloating Status: Acute Code(s): R14.0 - Abdominal distension (gaseous) - Plan Mrs. Almeida is a 57-year-old female with a medical history of hypertension and COPD. Patient presented to the emergency room at [facility] on 11/16 with complaint of having had a syncopal episode, with chest wall discomfort after falling forward. At this time patient also reported that she has been having loose watery stools for 2-1/2 months with abdominal bloating. Denies any noted fever or chills. This service has been consulted to evaluate patient's elevated liver enzymes as well as abdominal bloating. Patient also reports increasing diaphoresis and nausea without vomiting over a 2-month time span. She reports using Pepto-Bismol with [id number]-[id number] probiotics with no improvement of symptoms. Patient denies any noted bleeding in stools. Patient reports occasional heartburn whenever she eats tomato based products, denies taking any medication for same states she just "avoids the triggers". Patient denies any dysphagia or odynophagia with swallowing. Does endorse that she has history of hiatal hernia. Family history positive for colon cancer-patient's father. Patient reports that she smokes 1/2 pack/day cigarettes and drinks 2 beers daily each morning after work. 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 Patient denies ever having had an EGD or colonoscopy. 11/16/2017 CT chest performed with the following findings--> Mass-like opacity in the left lower lobe abutting the medial pleura/posterior mediastinum. This could be related to a mass or some sort of pulmonary sequestration. PET/CT scan recommended to evaluate hypermetabolic activity. Consolidation right middle lobe likely infiltrate. No evidence for pulmonary embolism . Of note patient states that she was diagnosed with a cyst in her chest as a child. CT scan of abdomen and pelvis ordered and pending at this time, patient drinking oral contrast for same. WBC 7.0 hemoglobin 15.9 hematocrit 45.3 platelet count 178 INR 1.0 total bilirubin 0.9 AST 108 ALT 88 alk phos 104. Elevated liver enzymes and Abdominal bloating Total bilirubin 0.9 AST 108 ALT 88 alk phos 104. Patient denies any known history of liver disease. She endorses drinking 2 beers daily for approximately [address] abdomen and pelvis pending. We will proceed with liver workup and stool studies. No BM since admission per patient. Plan -Diet as tolerated -Monitor labs -CT abdomen and pelvis-results pending -Stool studies -Liver workup -Analgesics and antiemetics as per attending -Supportive care -Further recommendations to follow based on patient status and findings This patient has been seen by myself and Dr. Durant and this note is written on his behalf - Attending Attestation Dr. Durant <Stephanie Soliz - Last Filed: 11/17/17 15:08> (1) Elevated liver enzymes Status: Acute Code(s): R74.8 - Abnormal levels of other serum enzymes (2) Abdominal bloating Status: Acute Code(s): R14.0 - Abdominal distension (gaseous) - Plan Seen and examined with CHURNER, Liver granado ordered. Await ct abd/pelvis. The exam, history, and the medical decision-making described in the above note were completed with the assistance of the mid-level provider. I reviewed and agree with the findings presented. I attest that I had a [id number] encounter with the patient on the same day, and personally performed and documented my assessment and findings in the medical record. <Bobbi Durant - Last Filed: 11/17/17 15:54>
[2017-11-17 17:33] LABS: Alpha Fetoprotein Tumor Marker 4.6 ng/mL (0.5-8.0); Carcinoembryonic Antigen 3.7 ng/mL (0.2-5.0)
--- NOTE | 2017-11-17 17:34 | P.PN ---
Subjective Interval history: Patient is seen sitting up in bed. She reports continued episodes of diaphoresis. Also experiencing tenderness in the left chest wall. No exertional chest pain. Shortness of breath when lying down but not when sitting up. Abdominal bloating and fullness. She has had diarrhea for 2 months and has been unable to get it to resolve on her own. No nausea or vomiting at this time. No recent hormone use-last hormone use 3 years ago. She has not seen primary care in over 4 years. Also reports intermittent mild dizziness that feels like the room is spinning or moving around her. Physical Exam Vital signs: Vital Signs 11/16/17 19:50 11/16/17 20:00 11/16/17 20:29 Temperature 98.3 F Pulse Rate 100 H 92 H Respiratory Rate 18 16 Blood Pressure 138/76 Pulse Oximetry 95 11/17/17 00:00 11/17/17 00:49 11/17/17 04:00 Temperature 97.8 F 97.8 F Pulse Rate 90 81 Respiratory Rate 18 18 18 Blood Pressure 139/87 138/86 Pulse Oximetry 93 L 97 11/17/17 08:00 11/17/17 12:00 11/17/17 16:00 Temperature 97.8 F 98.3 F 98.8 F Pulse Rate 78 86 82 Respiratory Rate 18 18 18 Blood Pressure 135/83 141/87 H 133/84 Pulse Oximetry 95 92 L 95 Intake & Output 11/16/17 11/17/17 11/17/17 18:59 06:59 18:59 Intake Total 1369 / 1369 1000 / 1000 Balance 1369 / 1369 1000 / 1000 Weight 96.162 kg Intake: IV 769 / 769 1000 / 1000 NS Inj 1,000 ML @ 100 mls/hr IV 769 / 769 1000 / 1000 .CONT .Q10H JOANA Rx#:[id number] Oral 600 / 600 Other: # Voids 3 Date of Last Bowel Movement 11/16/17 11/16/17 11/16/17 Weight On Admission 96.162 kg Narrative: GENERAL: Well-nourished, well-developed adult female in no obvious distress. SKIN: Diaphoretic. Neck: No appreciable adenopathy however body habitus makes this difficult. HEAD: Atraumatic. Normocephalic. CARDIOVASCULAR: Regular rate and rhythm. RESPIRATORY: No accessory muscle use. Mild wheezing. Breath sounds equal bilaterally. GASTROINTESTINAL: Abdomen soft, non-tender, distended. Positive bowel sounds. MUSCULOSKELETAL: Extremities without clubbing, cyanosis, or edema. No obvious deformities. Toes cool to touch; pedal pulses palpable. NEUROLOGICAL: Awake and alert. No obvious cranial nerve deficits. Motor grossly within normal limits. Normal speech. PSYCHIATRIC: Appropriate mood and affect; insight and judgment good. Results - Labs CBC & Chem 7: 11/16/17 06:05 11/16/17 06:05 Laboratory Results - last 24 hr 11/16/17 11/16/17 11/16/17 06:46 07:50 18:58 POC Glucose 133 H Stl C.difficile DNA Amp Negative St C. diff Tox Epid 027 Negative Urine Opiates Screen Neg Ur Barbiturates Screen Neg Ur Amphetamines Screen Neg U Benzodiazepines Scrn Neg Urine Cocaine Screen Neg U Cannabinoids Screen Neg Hepatitis A IgM Ab Hep Bs Antigen Hep B Core IgM Ab Hep C IgG Ab 11/16/17 21:23 POC Glucose Stl C.difficile DNA Amp St C. diff Tox Epid 027 Urine Opiates Screen Ur Barbiturates Screen Ur Amphetamines Screen U Benzodiazepines Scrn Urine Cocaine Screen U Cannabinoids Screen Hepatitis A IgM Ab Nonreactive Hep Bs Antigen Nonreactive Hep B Core IgM Ab Nonreactive Hep C IgG Ab Nonreactive Microbiology 11/16/17 06:15 Blood - Peripheral Aerobic Blood Culture - Preliminary No growth in 1 day 11/16/17 06:15 Blood - Peripheral Anaerobic Blood Culture - Preliminary No growth in 1 day 11/16/17 06:10 Blood - Peripheral Aerobic Blood Culture - Preliminary No growth in 1 day 11/16/17 06:10 Blood - Peripheral Anaerobic Blood Culture - Preliminary No growth in 1 day - Imaging Impressions Bone Scan Nuclear Medicine 11/17/17 00:00 CONCLUSION: 1. Negative whole body bone scan of metastatic disease Assessment and Plan - Assessment (1) Syncope Code(s): R55 - Syncope and collapse Status: Acute (2) Arrhythmia Code(s): I49.9 - Cardiac arrhythmia, unspecified Status: Acute (3) Lung mass Code(s): R91.8 - Other nonspecific abnormal finding of lung field Status: Acute (4) Transaminitis Code(s): R74.0 - Nonspecific elevation of levels of transaminase and lactic acid dehydrogenase [LDH] Status: Acute (5) Giardia Code(s): A07.1 - Giardiasis [lambliasis] Status: Acute (6) Abdominal bloating Code(s): R14.0 - Abdominal distension (gaseous) Status: Acute - Plan 57-year-old female admitted secondary to syncopal episode Syncope Possible Arrhythmia Echo and carotids -grossly normal Orthostatic blood pressure checks pending Follow on telemetry Lung Mass Present on CTA of chest May be congenital based on history NM Bone scan added for further evaluation of metabolic activity -negative for metastases Wheezing-add nebulizers Pulmonary consulted Chronic Diarrhea Screen for C. Diff -negative Screen for O&P -positive for crypto and giardia. ID consulted to evaluate need to treat. Follow electrolytes Transaminitis and bloating Abdominal CT ordered to evaluate GI consulted Chronic Diaphoresis TSH is within normal limits today Screen for tick bourne illnesses Sinus congestion Bronchitis No evidence of bacterial infection Antihistamine Antitussive PRN Hypertension Continue baseline treatment Follow blood pressures Adjust treatments as needed As needed Vasotec IV COPD As needed nebs No exacerbation DVT prophylaxis SCDs Discussed with: Patient, nurse, Dr. Peter
--- NOTE | 2017-11-17 17:50 | CT ---
EXAM DATE: 11/17/2017 5:16 PM EDT AGE/SEX: 57 years / Female INDICATIONS: Elevated liver enzymes. Known mass in the left lung seen on prior CT angiogram. CLINICAL DATA: This is the patient's initial encounter. Patient reports that signs and symptoms have been present for 1 day and indicates a pain score of 0/10. MEDICAL/SURGICAL HISTORY: Chronic obstructive pulmonary disease. Hypertension. Lung mass. . Hernia repair, sex reassignment surgery. RADIATION DOSE: 15.31 CTDI (mGy) COMPARISON: [facility], CTA PULMONARY W CONTRAST W 3D, 11/16/2017. . TECHNIQUE: Multiple contiguous axial images were obtained through the abdomen. Images were obtained using multiple row detector helical technique. Using automated exposure control and adjustment of the mA and/or kV according to patient size, radiation dose was kept as low as reasonably achievable to o btain optimal diagnostic quality images. DICOM format image data is available electronically for rev iew and comparison. FINDINGS: Lower Lungs: The known mass in the left medial lung base is again visualized and measures 50 Hounsfie ld units in density. This measures up to 7 x 5.6 cm in greatest diameter. There is minimal left pleur al fluid. Liver: The liver is normal in size and shape with diffuse moderate to severe hepatic steatosis. There is no focal mass. The gallbladder is unremarkable in appearance. Spleen: Homogeneous density without enlargement. There are small calcified granulomas. Pancreas: Unremarkable without mass or calcification. Kidneys: Normal in size and shape. No evidence of mass or hydronephrosis. Adrenal Glands: Unremarkable. Aorta: The aorta and proximal iliac vessels are grossly unremarkable without aneurysmal dilation. Bowel/Mesentery: The bowel loops are grossly marked bowing except for small diverticuli in the sigmo id colon with no inflammatory change. The cecum and sigmoid colon have a normal configuration. Abdominal Wall: Intact. Retroperitoneum: No evidence of adenopathy in the retrocrural, para-aortic, or deep pelvic regions. Bladder: Contours are smooth. Reproductive Organs: No abnormal masses or calcifications seen. The prostate gland is present. Inguinal: Bilateral fat-containing inguinal hernias. Bony Structures: Unremarkable. CONCLUSION: 1. Moderate to severe hepatic steatosis with no focal mass or ductal dilatation. 2. The known mass in the medial left lung base is again visualized. Please see CT angiogram report f or further details. 3. Mild diverticulosis. 4. Bilateral fat-containing inguinal hernias. Electronically signed by: Rajeev Cortes MD 11/17/2017 5:49 PM EDT
--- NOTE | 2017-11-17 20:41 | MB ---
cc: Amparo Mann MD DATE: 11/17/2017 REASON FOR CONSULTATION: Respiratory insufficiency and possible mass. HISTORY OF PRESENT ILLNESS: This is a 57-year-old lady with a history of smoking and a history of asthma. She was at work and apparently had a syncopal episode and hit her chest against a ledge and suffered a contusion to her left chest. She was complaining of some pain along the chest and back, and she thus came to the emergency room for evaluation. Upon arrival, she was worked up with a head CT, rib x-rays, chest CTA and bone scan. The CT of the chest showed a mass-like opacity in the left lower lobe abutting the mediastinum. The patient also had a consolidation in the right middle lobe. The patient states that she smokes about 3/4 pack of cigarettes per day and has had a history of asthma and bronchitis, but presently only brings up a little whitish mucus. She denies any hemoptysis. She is not short of breath at rest and presently off oxygen. PAST MEDICAL HISTORY: Has been significant for asthma, bronchitis, history of hypertension, history of sex reassignment surgery and history for bilateral inguinal hernia repair. FAMILY HISTORY: Father of colon cancer. Mother of stroke and had had a history of coronary artery bypass grafting. ALLERGIES: PENICILLIN. HABITS: The patient smoked 3/4 packs of cigarettes per day for 12 years, continues to smoke a few daily, drinks alcohol regularly. 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 REVIEW OF SYSTEMS: The patient is overweight. She has dizziness and near blackout spells. She has some blurriness of vision and she has chest pain. There are no urinary symptoms. No leg or calf muscle pains. She has some joint pains in the extremities. PHYSICAL EXAMINATION: GENERAL: This is an obese, middle-aged, white female who is alert and anxious. Face is flushed. Blood pressure 160/80, pulse is 90, respirations 22, temperature 98.4. CHEST: Reveals equal movements with expiratory wheezes bilaterally, prolonged expirations. HEART: The heart sounds, regular S1 and S2. No murmur. ABDOMEN: Soft, protuberant without masses. No organomegaly. There is mild epigastric tenderness. Bowel sounds are active. EXTREMITIES: No edema. The peripheral pulses are diminished. Reflexes are 1+. No gross motor deficits. NEUROLOGIC: The patient is alert, oriented, and cooperative. SKIN: No lesions observed. IMPRESSION: 1. 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 2. Right mid lung infiltrate, probable pneumonia. 3. History of asthma, chronic bronchitis. 4. Syncopal episode, etiology undetermined. 5. Hypertension. 6. Nicotine dependency. PLAN: The patient will be sent for a blood gas study and a pulmonary function study. She will be placed on DuoNeb q.i.d. and p.r.n. She will be placed on oral Levaquin 750 mg a day. We will need a PET CT scan done as an outpatient. 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 Old records from her family physician will be requested. She was counseled about quitting cigarette smoking and use a nicotine patch if necessary, and further cardiac and neuro evaluation for her syncopal episode. A followup chest x-ray will be done in the morning. Thank you for this consultation. Amparo Mann MD VNANCY/marjorie , 07:05 PM , 07:20 PM
--- NOTE | 2017-11-18 00:59 | XR ---
EXAM DATE: 11/18/2017 12:00 AM EDT AGE/SEX: 57 years / Female INDICATIONS: Chest pain, shortness of breath. CLINICAL DATA: This is the patient's subsequent encounter. Patient reports that signs and symptoms h ave been present for 2 days and indicates a pain score of 8/10. MEDICAL/SURGICAL HISTORY: Hypertension. Smoker. None. COMPARISON: No prior exams available for comparison. FINDINGS: A single AP view of the chest demonstrates the lungs to be symmetrically aerated without evidence of mass, infiltrate or effusion. The cardiomediastinal contours are unremarkable. Osseous structures a re intact. CONCLUSION: No acute findings. Minimal linear atelectasis or scarring at the left lung base. Electronically signed by: Se Tran MD 11/18/2017 12:58 AM EDT
[2017-11-18] MEDS: Sod Chloride 0.9% Inj 1,000 ML IV.CONT SCH ×2 (02:41→12:44)
[2017-11-18] MEDS: Melatonin 5 MG Tablet PO PRN ×2 (03:05→21:00)
[2017-11-18 05:29] LABS: Baso % (Auto) 0.8 % (0.0-2.0); Eos # (Auto) 0.1 th/mm3 (0.0-0.4); Eos % (Auto) 1.9 % (0.0-4.0); Hematocrit 42.1 % (35.0-46.0); Hemoglobin 14.4 gm/dL (11.6-15.3); Lymph % (Auto) 20.7 % (9.0-44.0); Mean Corpuscular HGB Conc 34.3 % (32.0-36.0); Mean Corpuscular Hemoglobin 36.7 pg (27.0-34.0); Mean Platelet Volume 7.8 fL (7.0-11.0); Mono # (Auto) 0.5 th/mm3 (0.0-0.9); Mono % (Auto) 9.5 % (0.0-8.0); Neut # (Auto) 3.2 th/mm3 (1.8-7.7); Neut % (Auto) 67.1 % (16.0-70.0); Platelet Count 135 th/mm3 (150-450); Red Blood Count 3.94 mil/mm3 (4.00-5.30); Red Cell Distribution Width 12.3 % (11.6-17.2); White Blood Count 4.7 th/mm3 (4.0-11.0)
[2017-11-18 05:55] LABS: Alanine Aminotransferase 73 U/L (10-53); Albumin 2.9 g/dL (3.4-5.0); Alkaline Phosphatase 86 U/L (45-117); Anion Gap 7 meq/L (5-15); Aspartate Aminotransferase 69 U/L (15-37); Blood Urea Nitrogen 5 mg/dL (7-18); Calcium 8.5 mg/dL (8.5-10.1); Carbon Dioxide 29.2 meq/L (21.0-32.0); Chloride 106 meq/L (98-107); Glomerular Filtration Rate Greater Than 89 mL/min (>89); Glucose,Random 112 mg/dL (74-106); Potassium 3.6 meq/L (3.5-5.1); Sodium 142 meq/L (136-145); Total Protein 6.4 g/dL (6.4-8.2)
--- NOTE | 2017-11-18 07:39 | P.PNGI ---
Subjective Interval history: Pt is resting in bed, doing good, no pain, no nausea, no vomiting, no diarrhea, good response to Lomotil <Max Mayen - Last Filed: 11/26/17 10:10> Physical Exam Vital signs: Vital Signs 11/18/17 00:00 11/18/17 04:00 11/18/17 07:39 Temperature 98.1 F 98.3 F 98.5 F Pulse Rate 90 83 89 Respiratory Rate 20 19 18 Blood Pressure 169/86 H 148/84 H 142/82 H Pulse Oximetry 96 95 95 11/18/17 08:06 11/18/17 12:05 11/18/17 15:45 Temperature 98.1 F 98.7 F Pulse Rate 65 79 88 Respiratory Rate 16 20 Blood Pressure 141/94 H 133/82 Pulse Oximetry 95 95 11/18/17 19:43 Temperature 98.7 F Pulse Rate 103 H Respiratory Rate 18 Blood Pressure 125/79 Pulse Oximetry 100 Intake & Output 11/18/17 11/18/17 11/19/17 06:59 18:59 06:59 Intake Total 750 / 750 Output Total 1500 / 1500 Balance -750 / -750 Intake: Other 750 / 750 Output: Urine 1500 / 1500 Other: Other Intake Source Saline Solution Date of Last Bowel Movement 11/17/17 11/17/17 <Verito Rosario - Last Filed: 11/18/17 22:39> Vital signs: Vital Signs 11/17/17 08:00 11/17/17 12:00 11/17/17 16:00 Temperature 97.8 F 98.3 F 98.8 F Pulse Rate 78 86 82 Respiratory Rate 18 18 18 Blood Pressure 135/83 141/87 H 133/84 Pulse Oximetry 95 92 L 95 11/17/17 20:00 11/18/17 00:00 11/18/17 04:00 Temperature 98.8 F 98.1 F 98.3 F Pulse Rate 85 90 83 Respiratory Rate 20 20 19 Blood Pressure 130/71 169/86 H 148/84 H Pulse Oximetry 96 96 95 Intake & Output 11/17/17 11/18/17 11/18/17 18:59 06:59 18:59 Other: Date of Last Bowel Movement 11/16/17 11/17/17 Narrative: GENERAL: Well-nourished, well-developed adult female in no obvious distress. HEAD: Atraumatic. Normocephalic. CARDIOVASCULAR: Regular rate and rhythm. RESPIRATORY: No accessory muscle use. Mild wheezing. Breath sounds equal bilaterally. GASTROINTESTINAL: Abdomen soft, non-tender, distended. Positive bowel sounds. MUSCULOSKELETAL: Extremities without clubbing, cyanosis, or edema. No obvious deformities. NEUROLOGICAL: Awake and alert. PSYCHIATRIC: Appropriate mood and affect; insight and judgment good. <Max Mayen - Last Filed: 11/26/17 10:10> Results - Labs CBC & Chem 7: 11/18/17 04:55 11/18/17 04:55 Laboratory Results - last 24 hr 11/18/17 11/18/17 11/18/17 04:55 04:55 07:47 WBC 4.7 RBC 3.94 L Hgb 14.4 Hct 42.1 MCV 107.0 H MCH 36.7 H MCHC 34.3 RDW 12.3 Plt Count 135 L MPV 7.8 Neut % (Auto) 67.1 Lymph % (Auto) 20.7 [place] % (Auto) 9.5 H Eos % (Auto) 1.9 Baso % (Auto) 0.8 Neut # (Auto) 3.2 Lymph # (Auto) 1.0 [place] # (Auto) 0.5 Eos # (Auto) 0.1 Baso # (Auto) 0.0 WBC Differential . Differential Comment Auto diff final Puncture Site Left radial Patient Temperature 98.6 O2 Saturation 89 L* ABG pH 7.45 H ABG pCO2 40 ABG pO2 62 ABG HCO3 27 H ABG O2 Content 18.3 ABG Base Excess 3.4 H ABG Methemoglobin 0.8 Elver Test Present Hemoglobin 14.6 Carboxyhemoglobin 1.4 O2 Delivery Device N Inspired O2 21 Critical Value Yes Sodium 142 Potassium 3.6 Chloride 106 Carbon Dioxide 29.2 Anion Gap 7 BUN 5 L Creatinine 0.58 Estimated GFR Greater than 89 Random Glucose 112 H Calcium 8.5 Total Bilirubin 0.6 AST 69 H ALT 73 H Alkaline Phosphatase 86 Total Protein 6.4 D Albumin 2.9 L D Microbiology 11/16/17 18:58 Stool Cryptosporidium Antigen - Final Negative - No Cryptosporicium antigen detected In selected cases of patients with a history of immunosuppression or foreign travel, a full ova and parasites examination may be desired. Contact the microbiology lab if full workup is indicated and subit another specimen for testing. 11/16/17 18:58 Stool Giardia Antigen (NATALIA) - Final Negative - No Giardia Antigen detected In selected cases of patients with a history of immunosuppression or foreign travel, a full ova and parasites examination may be desired. Contact the microbiology lab if full workup is indicated and subit another specimen for testing. 11/16/17 06:15 Blood - Peripheral Aerobic Blood Culture - Preliminary No growth in 2 days 11/16/17 06:15 Blood - Peripheral Anaerobic Blood Culture - Preliminary No growth in 2 days 11/16/17 06:10 Blood - Peripheral Aerobic Blood Culture - Preliminary No growth in 2 days 11/16/17 06:10 Blood - Peripheral Anaerobic Blood Culture - Preliminary No growth in 2 days - Imaging Impressions Chest X-Ray 11/18/17 00:00 CONCLUSION: No acute findings. Minimal linear atelectasis or scarring at the left lung base. Neck Ultrasound 11/18/17 00:00 CONCLUSION: 1. Heterogeneous thyroid echotexture without focal nodule or thyroid enlargement. 2. No significant cervical adenopathy. Normal-appearing level 4 cervical nodes measuring up to 1.4 cm. <Verito Rosario - Last Filed: 11/18/17 22:39> - Labs CBC & Chem 7: 11/18/17 04:55 11/18/17 04:55 Laboratory Results - last 24 hr 11/16/17 11/17/17 11/17/17 06:46 15:23 16:20 WBC RBC Hgb Hct MCV MCH MCHC RDW Plt Count MPV Neut % (Auto) Lymph % (Auto) [place] % (Auto) Eos % (Auto) Baso % (Auto) Neut # (Auto) Lymph # (Auto) [place] # (Auto) Eos # (Auto) Baso # (Auto) WBC Differential Differential Comment ESR 3 Sodium Potassium Chloride Carbon Dioxide Anion Gap BUN Creatinine Estimated GFR POC Glucose 133 H Random Glucose Calcium Iron TIBC % Saturation Ferritin Total Bilirubin AST ALT Alkaline Phosphatase Ammonia Troponin I Total Protein Albumin Tumor Marker AFP Carcinoembryonic Ag CA 19-9 Antigen HIV 1&2 Ab/P24 Ag 4thGn Nonreactive 11/17/17 11/17/17 11/17/17 16:42 16:42 16:42 WBC RBC Hgb Hct MCV MCH MCHC RDW Plt Count MPV Neut % (Auto) Lymph % (Auto) [place] % (Auto) Eos % (Auto) Baso % (Auto) Neut # (Auto) Lymph # (Auto) [place] # (Auto) Eos # (Auto) Baso # (Auto) WBC Differential Differential Comment ESR Sodium Potassium Chloride Carbon Dioxide Anion Gap BUN Creatinine Estimated GFR POC Glucose Random Glucose Calcium Iron 26 L TIBC 325 % Saturation 8.0 L Ferritin 484 H Total Bilirubin AST ALT Alkaline Phosphatase Ammonia 25 Troponin I Total Protein Albumin Tumor Marker AFP 4.6 Carcinoembryonic Ag 3.7 CA 19-9 Antigen 71.1 H HIV 1&2 Ab/P24 Ag 4thGn 11/17/17 11/18/17 11/18/17 19:55 04:55 04:55 WBC 4.7 RBC 3.94 L Hgb 14.4 Hct 42.1 MCV 107.0 H MCH 36.7 H MCHC 34.3 RDW 12.3 Plt Count 135 L MPV 7.8 Neut % (Auto) 67.1 Lymph % (Auto) 20.7 [place] % (Auto) 9.5 H Eos % (Auto) 1.9 Baso % (Auto) 0.8 Neut # (Auto) 3.2 Lymph # (Auto) 1.0 [place] # (Auto) 0.5 Eos # (Auto) 0.1 Baso # (Auto) 0.0 WBC Differential . Differential Comment Auto diff final ESR Sodium 142 Potassium 3.6 Chloride 106 Carbon Dioxide 29.2 Anion Gap 7 BUN 5 L Creatinine 0.58 Estimated GFR Greater than 89 POC Glucose Random Glucose 112 H Calcium 8.5 Iron TIBC % Saturation Ferritin Total Bilirubin 0.6 AST 69 H ALT 73 H Alkaline Phosphatase 86 Ammonia Troponin I Less than 0.02 L Total Protein 6.4 D Albumin 2.9 L D Tumor Marker AFP Carcinoembryonic Ag CA 19-9 Antigen HIV 1&2 Ab/P24 Ag 4thGn Microbiology 11/16/17 06:15 Blood - Peripheral Aerobic Blood Culture - Preliminary No growth in 1 day 11/16/17 06:15 Blood - Peripheral Anaerobic Blood Culture - Preliminary No growth in 1 day 11/16/17 06:10 Blood - Peripheral Aerobic Blood Culture - Preliminary No growth in 1 day 11/16/17 06:10 Blood - Peripheral Anaerobic Blood Culture - Preliminary No growth in 1 day - Imaging Impressions Abdomen/Pelvis CT 11/17/17 00:00 CONCLUSION: 1. Moderate to severe hepatic steatosis with no focal mass or ductal dilatation. 2. The known mass in the medial left lung base is again visualized. Please see CT angiogram report for further details. 3. Mild diverticulosis. 4. Bilateral fat-containing inguinal hernias. Bone Scan Nuclear Medicine 11/17/17 00:00 CONCLUSION: 1. Negative whole body bone scan of metastatic disease Chest X-Ray 11/18/17 00:00 CONCLUSION: No acute findings. Minimal linear atelectasis or scarring at the left lung base. <Max Mayen - Last Filed: 11/26/17 10:10> Assessment and Plan (1) Elevated liver enzymes Status: Acute Code(s): R74.8 - Abnormal levels of other serum enzymes (2) Abdominal bloating Status: Acute Code(s): R14.0 - Abdominal distension (gaseous) - Attending Attestation seen, examined agree with above <Verito Rosario - Last Filed: 11/18/17 22:39> (1) Elevated liver enzymes Status: Acute Code(s): R74.8 - Abnormal levels of other serum enzymes - Plan - Elevated LFTs- likely secondary to alcohol intake, She endorses drinking 2 beers daily Hepatitis panel negative, iron saturation 8, Fe 484, AFP normal. rest still pending Abdomen/Pelvis CT 11/17/17 00:00 1. Moderate to severe hepatic steatosis with no focal mass or ductal dilatation. 2. The known mass in the medial left lung base is again visualized. Please see CT angiogram report for further details. 3. Mild diverticulosis. 4. Bilateral fat-containing inguinal hernias. - Diarrhea X 2 months- Negative for C-diff, cx still pending, improving Never had EGD/colonoscopy before. - mass or some sort of pulmonary sequestration. pulmonary consulted. PET/CT scan recommended to evaluate hypermetabolic activity. Bone scan negative for mets. CA 19-9 71, CEA normal - Syncopal episodes- Possible erythremia, ECho normal, work up in processes - COPD, HTN per attending Plan: - JUAN F - Await rest of liver work up - Consider Colonoscopy on Monday - Await stools - Alcohol cessation - Supportive care - Pt seen and examined by Dr. Rosario and myself and this note is written on her behalf. <Max Mayen - Last Filed: 11/26/17 10:10>
[2017-11-18 07:59] LABS: ABG Base Excess 3.4 mmol/L (-2-2); ABG PCO2 40 mmHg (38-42); ABG PO2 62 mmHg (61-120)
[2017-11-18] MEDS: Loratadine 10 MG Tablet PO SCH (08:14)
[2017-11-18] MEDS: levoFLOXacin 750 MG Tablet PO SCH (08:14)
[2017-11-18] MEDS ORDERED: Sodium Chloride 0.9% 2 ML Flush PRN IV.FLUSH (11:54)
--- NOTE | 2017-11-18 12:16 | US ---
EXAM DATE: 11/18/2017 12:00 AM EDT AGE/SEX: 57 years / Female INDICATIONS: Palpable neck mass. CLINICAL DATA: This is the patient's initial encounter. Patient reports that signs and symptoms have been present for 1 day and indicates a pain score of 0/10. MEDICAL/SURGICAL HISTORY: Chronic obstructive pulmonary disease. Hypertension. Chronic asthmat ic bronchitis with acute exacerbation. . Hernia repair.Sex reassignment surgery. COMPARISON: No prior exams available for comparison. FINDINGS: Evaluation of the neck including the thyroid and lower cervical radha chain was performed. Thyroid is diffusely heterogeneous in echotexture but is not enlarged. Right thyroid measures approximately 1.7 x 1.2 cm. Left thyroid measures approximately 1.3 x 1.4 cm. No discrete thyroid nodule is demonstrat ed although evaluation is somewhat limited due to patient's body habitus. Note is made of normal-appe aring level 4 cervical lymph nodes measuring up to 1.4 cm. CONCLUSION: 1. Heterogeneous thyroid echotexture without focal nodule or thyroid enlargement. 2. No significant cervical adenopathy. Normal-appearing level 4 cervical nodes measuring up to 1.4 c m. Electronically signed by: Miguel A Trujillo MD 11/18/2017 12:15 PM EDT
[2017-11-18] MEDS: amLODIPine 5 MG Tablet PO SCH (12:45)
--- NOTE | 2017-11-18 13:30 | ECG ---
Date Performed: 11/17/2017 Time Performed: 19:14:34 PTAGE: 57 years EKG: TECHNICALLY POOR TRACING WITH MARKED BASELINE ARTIFACT THERE IS AN IRREGULAR RHYTHM WHICH I S MOST LIEKLY Sinus rhythm WITH PACS. LOW VOLTAGE Compared to previous tracing, the poor technical quality would suggest that i t needs to be repeated with better quality. ABNORMAL RHYTHM ECG PREVIOUS TRACING : 11/16/2017 06.00 DOCTOR: Wander Orr Interpretating Date/Time 11/18/2017 13:28:45
--- NOTE | 2017-11-18 16:32 | P.PN ---
Subjective Interval history: Patient is seen sitting up in bed. She reports that her chest pain is better and that she feels it was likely related to anxiety over her current situation. Continues to have wheezing and some shortness of breath however nebulizers do help. No nausea or vomiting. Diarrhea has improved however she is still very bloated. Continues to have episodes of upper body diaphoresis. Physical Exam Vital signs: Vital Signs 11/17/17 20:00 11/18/17 00:00 11/18/17 04:00 Temperature 98.8 F 98.1 F 98.3 F Pulse Rate 85 90 83 Respiratory Rate 20 20 19 Blood Pressure 130/71 169/86 H 148/84 H Pulse Oximetry 96 96 95 11/18/17 07:39 11/18/17 08:06 11/18/17 12:05 Temperature 98.5 F 98.1 F Pulse Rate 89 65 79 Respiratory Rate 18 16 Blood Pressure 142/82 H 141/94 H Pulse Oximetry 95 95 11/18/17 15:45 Temperature 98.7 F Pulse Rate 88 Respiratory Rate 20 Blood Pressure 133/82 Pulse Oximetry 95 Intake & Output 11/17/17 11/18/17 11/18/17 18:59 06:59 18:59 Other: Date of Last Bowel Movement 11/16/17 11/17/17 11/17/17 Narrative: GENERAL: Well-nourished, well-developed adult female in no obvious distress. HEAD: Atraumatic. Normocephalic. CARDIOVASCULAR: Regular rate and rhythm. RESPIRATORY: No accessory muscle use. Mild wheezing. Breath sounds equal bilaterally. GASTROINTESTINAL: Abdomen soft, non-tender, distended. Positive bowel sounds. MUSCULOSKELETAL: Extremities without clubbing, cyanosis, or edema. No obvious deformities. NEUROLOGICAL: Awake and alert. PSYCHIATRIC: Appropriate mood and affect; insight and judgment good. Results - Labs CBC & Chem 7: 11/18/17 04:55 11/18/17 04:55 Laboratory Results - last 24 hr 11/17/17 11/17/17 11/17/17 15:23 16:20 16:42 WBC RBC Hgb Hct MCV MCH MCHC RDW Plt Count MPV Neut % (Auto) Lymph % (Auto) [place] % (Auto) Eos % (Auto) Baso % (Auto) Neut # (Auto) Lymph # (Auto) [place] # (Auto) Eos # (Auto) Baso # (Auto) WBC Differential Differential Comment ESR 3 Puncture Site Patient Temperature O2 Saturation ABG pH ABG pCO2 ABG pO2 ABG HCO3 ABG O2 Content ABG Base Excess ABG Methemoglobin Elver Test Hemoglobin Carboxyhemoglobin O2 Delivery Device Inspired O2 Critical Value Sodium Potassium Chloride Carbon Dioxide Anion Gap BUN Creatinine Estimated GFR Random Glucose Calcium Iron 26 L TIBC 325 % Saturation 8.0 L Ferritin 484 H Total Bilirubin AST ALT Alkaline Phosphatase Ammonia Troponin I Total Protein Albumin Tumor Marker AFP 4.6 Carcinoembryonic Ag 3.7 CA 19-9 Antigen HIV 1&2 Ab/P24 Ag 4thGn Nonreactive 11/17/17 11/17/17 11/17/17 16:42 16:42 19:55 WBC RBC Hgb Hct MCV MCH MCHC RDW Plt Count MPV Neut % (Auto) Lymph % (Auto) [place] % (Auto) Eos % (Auto) Baso % (Auto) Neut # (Auto) Lymph # (Auto) [place] # (Auto) Eos # (Auto) Baso # (Auto) WBC Differential Differential Comment ESR Puncture Site Patient Temperature O2 Saturation ABG pH ABG pCO2 ABG pO2 ABG HCO3 ABG O2 Content ABG Base Excess ABG Methemoglobin Elver Test Hemoglobin Carboxyhemoglobin O2 Delivery Device Inspired O2 Critical Value Sodium Potassium Chloride Carbon Dioxide Anion Gap BUN Creatinine Estimated GFR Random Glucose Calcium Iron TIBC % Saturation Ferritin Total Bilirubin AST ALT Alkaline Phosphatase Ammonia 25 Troponin I Less than 0.02 L Total Protein Albumin Tumor Marker AFP Carcinoembryonic Ag CA 19-9 Antigen 71.1 H HIV 1&2 Ab/P24 Ag 4thGn 11/18/17 11/18/17 11/18/17 04:55 04:55 07:47 WBC 4.7 RBC 3.94 L Hgb 14.4 Hct 42.1 MCV 107.0 H MCH 36.7 H MCHC 34.3 RDW 12.3 Plt Count 135 L MPV 7.8 Neut % (Auto) 67.1 Lymph % (Auto) 20.7 [place] % (Auto) 9.5 H Eos % (Auto) 1.9 Baso % (Auto) 0.8 Neut # (Auto) 3.2 Lymph # (Auto) 1.0 [place] # (Auto) 0.5 Eos # (Auto) 0.1 Baso # (Auto) 0.0 WBC Differential . Differential Comment Auto diff final ESR Puncture Site Left radial Patient Temperature 98.6 O2 Saturation 89 L* ABG pH 7.45 H ABG pCO2 40 ABG pO2 62 ABG HCO3 27 H ABG O2 Content 18.3 ABG Base Excess 3.4 H ABG Methemoglobin 0.8 Elver Test Present Hemoglobin 14.6 Carboxyhemoglobin 1.4 O2 Delivery Device N Inspired O2 21 Critical Value Yes Sodium 142 Potassium 3.6 Chloride 106 Carbon Dioxide 29.2 Anion Gap 7 BUN 5 L Creatinine 0.58 Estimated GFR Greater than 89 Random Glucose 112 H Calcium 8.5 Iron TIBC % Saturation Ferritin Total Bilirubin 0.6 AST 69 H ALT 73 H Alkaline Phosphatase 86 Ammonia Troponin I Total Protein 6.4 D Albumin 2.9 L D Tumor Marker AFP Carcinoembryonic Ag CA 19-9 Antigen HIV 1&2 Ab/P24 Ag 4thGn Microbiology 11/16/17 18:58 Stool Cryptosporidium Antigen - Final Negative - No Cryptosporicium antigen detected In selected cases of patients with a history of immunosuppression or foreign travel, a full ova and parasites examination may be desired. Contact the microbiology lab if full workup is indicated and subit another specimen for testing. 11/16/17 18:58 Stool Giardia Antigen (NATALIA) - Final Negative - No Giardia Antigen detected In selected cases of patients with a history of immunosuppression or foreign travel, a full ova and parasites examination may be desired. Contact the microbiology lab if full workup is indicated and subit another specimen for testing. 11/16/17 06:15 Blood - Peripheral Aerobic Blood Culture - Preliminary No growth in 2 days 11/16/17 06:15 Blood - Peripheral Anaerobic Blood Culture - Preliminary No growth in 2 days 11/16/17 06:10 Blood - Peripheral Aerobic Blood Culture - Preliminary No growth in 2 days 11/16/17 06:10 Blood - Peripheral Anaerobic Blood Culture - Preliminary No growth in 2 days - Imaging Impressions Abdomen/Pelvis CT 11/17/17 00:00 CONCLUSION: 1. Moderate to severe hepatic steatosis with no focal mass or ductal dilatation. 2. The known mass in the medial left lung base is again visualized. Please see CT angiogram report for further details. 3. Mild diverticulosis. 4. Bilateral fat-containing inguinal hernias. Chest X-Ray 11/18/17 00:00 CONCLUSION: No acute findings. Minimal linear atelectasis or scarring at the left lung base. Neck Ultrasound 11/18/17 00:00 CONCLUSION: 1. Heterogeneous thyroid echotexture without focal nodule or thyroid enlargement. 2. No significant cervical adenopathy. Normal-appearing level 4 cervical nodes measuring up to 1.4 cm. Assessment and Plan - Assessment (1) Syncope Code(s): R55 - Syncope and collapse Status: Acute (2) Arrhythmia Code(s): I49.9 - Cardiac arrhythmia, unspecified Status: Acute (3) Lung mass Code(s): R91.8 - Other nonspecific abnormal finding of lung field Status: Acute (4) Transaminitis Code(s): R74.0 - Nonspecific elevation of levels of transaminase and lactic acid dehydrogenase [LDH] Status: Acute (5) Abdominal bloating Code(s): R14.0 - Abdominal distension (gaseous) Status: Acute - Plan 57-year-old female admitted secondary to syncopal episode Syncope Echo and carotids -grossly normal Head CT neg for acute process Follow on telemetry Lung Mass Present on CTA of chest May be congenital based on history NM Bone scan added for further evaluation of metabolic activity -negative for metastases Wheezing-add nebulizers Pulmonary consulted -they are considering pulmonary sequestration. Chronic Diarrhea Screen for C. Diff -negative Screen for O&P -initially incorrectly read as positive; O&P is negative Follow electrolytes Transaminitis and bloating Abdominal CT ordered to evaluate -mild fatty liver and diverticulitis. GI consulted Chronic Diaphoresis TSH is within normal limits; ultrasound of thyroid grossly normal Screen for tick bourne illnesses Sinus congestion Bronchitis Levaquin added by Pulmonary on 11/17. Antihistamine Antitussive PRN Hypertension Follow blood pressures Adjust treatments as needed As needed Vasotec IV Add amlodipine 5mg on 11/18; consider HCTZ COPD As needed nebs No exacerbation DVT prophylaxis SCDs Discussed with: Patient, nurse, Dr. Peter
[2017-11-18] MEDS: Diphenoxylate/Atropine 2.5/0.025 MG Tablet PO PRN (17:30)
--- NOTE | 2017-11-18 17:59 | P.PN ---
Subjective Interval history: Has less chest pain. No fever. Abdominal CT shows hepatic steatosis. Some cough and wheezing persists. Physical Exam Vital signs: Vital Signs 11/17/17 20:00 11/18/17 00:00 11/18/17 04:00 Temperature 98.8 F 98.1 F 98.3 F Pulse Rate 85 90 83 Respiratory Rate 20 20 19 Blood Pressure 130/71 169/86 H 148/84 H Pulse Oximetry 96 96 95 11/18/17 07:39 11/18/17 08:06 11/18/17 12:05 Temperature 98.5 F 98.1 F Pulse Rate 89 65 79 Respiratory Rate 18 16 Blood Pressure 142/82 H 141/94 H Pulse Oximetry 95 95 11/18/17 15:45 Temperature 98.7 F Pulse Rate 88 Respiratory Rate 20 Blood Pressure 133/82 Pulse Oximetry 95 Intake & Output 11/17/17 11/18/17 11/18/17 18:59 06:59 18:59 Other: Date of Last Bowel Movement 11/16/17 11/17/17 11/17/17 Narrative: GENERAL: Moderately overweight W/ female in no obvious distress. HEAD: Atraumatic. Normocephalic. CARDIOVASCULAR: Regular rate and rhythm. RESPIRATORY: No accessory muscle use. Tender left chest wall. Mild wheezing. Breath sounds equal bilaterally. GASTROINTESTINAL: Abdomen soft, non-tender, distended. Positive bowel sounds. MUSCULOSKELETAL: Extremities without clubbing, cyanosis, or edema. No obvious deformities. NEUROLOGICAL: Awake and alert. PSYCHIATRIC: Appropriate mood and affect; insight and judgment good. Results - Labs CBC & Chem 7: 11/18/17 04:55 11/18/17 04:55 Laboratory Results - last 24 hr 11/17/17 11/17/17 11/18/17 16:42 19:55 04:55 WBC 4.7 RBC 3.94 L Hgb 14.4 Hct 42.1 MCV 107.0 H MCH 36.7 H MCHC 34.3 RDW 12.3 Plt Count 135 L MPV 7.8 Neut % (Auto) 67.1 Lymph % (Auto) 20.7 Yell % (Auto) 9.5 H Eos % (Auto) 1.9 Baso % (Auto) 0.8 Neut # (Auto) 3.2 Lymph # (Auto) 1.0 Yell # (Auto) 0.5 Eos # (Auto) 0.1 Baso # (Auto) 0.0 WBC Differential . Differential Comment Auto diff final Puncture Site Patient Temperature O2 Saturation ABG pH ABG pCO2 ABG pO2 ABG HCO3 ABG O2 Content ABG Base Excess ABG Methemoglobin Elver Test Hemoglobin Carboxyhemoglobin O2 Delivery Device Inspired O2 Critical Value Sodium Potassium Chloride Carbon Dioxide Anion Gap BUN Creatinine Estimated GFR Random Glucose Calcium Total Bilirubin AST ALT Alkaline Phosphatase Troponin I Less than 0.02 L Total Protein Albumin CA 19-9 Antigen 71.1 H 11/18/17 11/18/17 04:55 07:47 WBC RBC Hgb Hct MCV MCH MCHC RDW Plt Count MPV Neut % (Auto) Lymph % (Auto) Yell % (Auto) Eos % (Auto) Baso % (Auto) Neut # (Auto) Lymph # (Auto) Yell # (Auto) Eos # (Auto) Baso # (Auto) WBC Differential Differential Comment Puncture Site Left radial Patient Temperature 98.6 O2 Saturation 89 L* ABG pH 7.45 H ABG pCO2 40 ABG pO2 62 ABG HCO3 27 H ABG O2 Content 18.3 ABG Base Excess 3.4 H ABG Methemoglobin 0.8 Elver Test Present Hemoglobin 14.6 Carboxyhemoglobin 1.4 O2 Delivery Device N Inspired O2 21 Critical Value Yes Sodium 142 Potassium 3.6 Chloride 106 Carbon Dioxide 29.2 Anion Gap 7 BUN 5 L Creatinine 0.58 Estimated GFR Greater than 89 Random Glucose 112 H Calcium 8.5 Total Bilirubin 0.6 AST 69 H ALT 73 H Alkaline Phosphatase 86 Troponin I Total Protein 6.4 D Albumin 2.9 L D CA 19-9 Antigen Microbiology 11/16/17 18:58 Stool Cryptosporidium Antigen - Final Negative - No Cryptosporicium antigen detected In selected cases of patients with a history of immunosuppression or foreign travel, a full ova and parasites examination may be desired. Contact the microbiology lab if full workup is indicated and subit another specimen for testing. 11/16/17 18:58 Stool Giardia Antigen (NATALIA) - Final Negative - No Giardia Antigen detected In selected cases of patients with a history of immunosuppression or foreign travel, a full ova and parasites examination may be desired. Contact the microbiology lab if full workup is indicated and subit another specimen for testing. 11/16/17 06:15 Blood - Peripheral Aerobic Blood Culture - Preliminary No growth in 2 days 11/16/17 06:15 Blood - Peripheral Anaerobic Blood Culture - Preliminary No growth in 2 days 11/16/17 06:10 Blood - Peripheral Aerobic Blood Culture - Preliminary No growth in 2 days 11/16/17 06:10 Blood - Peripheral Anaerobic Blood Culture - Preliminary No growth in 2 days - Imaging Impressions Chest X-Ray 11/18/17 00:00 CONCLUSION: No acute findings. Minimal linear atelectasis or scarring at the left lung base. Neck Ultrasound 11/18/17 00:00 CONCLUSION: 1. Heterogeneous thyroid echotexture without focal nodule or thyroid enlargement. 2. No significant cervical adenopathy. Normal-appearing level 4 cervical nodes measuring up to 1.4 cm. 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 Status: Acute (2) Near syncope Code(s): R55 - Syncope and collapse Status: Acute (3) Arrhythmia Code(s): I49.9 - Cardiac arrhythmia, unspecified Status: Acute (4) Lung mass Code(s): R91.8 - Other nonspecific abnormal finding of lung field Status: Acute (5) Syncope Code(s): R55 - Syncope and collapse Status: Acute (6) Elevated liver enzymes Code(s): R74.8 - Abnormal levels of other serum enzymes Status: Acute (7) Abdominal bloating Code(s): R14.0 - Abdominal distension (gaseous) Status: Acute (8) Transaminitis Code(s): R74.0 - Nonspecific elevation of levels of transaminase and lactic acid dehydrogenase [LDH] Status: Acute (9) Asthmatic bronchitis Code(s): J45.909 - Unspecified asthma, uncomplicated Status: Acute (10) Hypertension Code(s): I10 - Essential (primary) hypertension Status: Acute - Plan 1. Will get prior CT results and compare. 2. Continue levaquin for 5 days. 3. Duoneb nebs tid and PRN 4. Add Breo 100 mcg , 1 puff daily. 5. Labs in am. 6. Home when BP controlled
[2017-11-18] MEDS: Sodium Chloride 0.9% 2 ML Flush BID IV.FLUSH SCH (21:00)
[2017-11-19] MEDS: levoFLOXacin 750 MG Tablet PO SCH (08:22)
[2017-11-19] MEDS: Loratadine 10 MG Tablet PO SCH (08:22)
[2017-11-19] MEDS: Sodium Chloride 0.9% 2 ML Flush BID IV.FLUSH SCH ×2 (08:22→21:35)
[2017-11-19] MEDS: amLODIPine 5 MG Tablet PO SCH (08:22)
[2017-11-19] MEDS: Diphenoxylate/Atropine 2.5/0.025 MG Tablet PO PRN (08:22)
--- NOTE | 2017-11-19 09:01 | P.PNGI ---
Subjective Interval history: Pt is resting in bed, states diarrhea is better with Lomotil but still going frequently and having loose stools if not taking Lomotil. No nausea, no vomiting or abd pain <Max Mayen - Last Filed: 11/19/17 08:56> Physical Exam Vital signs: Vital Signs 11/18/17 12:05 11/18/17 15:45 11/18/17 19:43 Temperature 98.1 F 98.7 F 98.7 F Pulse Rate 79 88 103 H Respiratory Rate 16 20 18 Blood Pressure 141/94 H 133/82 125/79 Pulse Oximetry 95 95 100 11/19/17 00:00 11/19/17 03:53 11/19/17 07:52 Temperature 98.6 F 98.6 F 98.2 F Pulse Rate 87 89 81 Respiratory Rate 18 18 16 Blood Pressure 114/70 130/74 131/77 Pulse Oximetry 95 95 96 Intake & Output 11/18/17 11/19/17 11/19/17 18:59 06:59 18:59 Intake Total 750 / 750 Output Total 1500 / 1500 Balance -750 / -750 Intake: Other 750 / 750 Output: Urine 1500 / 1500 Other: Other Intake Source Saline Solution Date of Last Bowel Movement 11/17/17 11/17/17 Narrative: GENERAL: Moderately overweight W/ female in no obvious distress. HEAD: Atraumatic. Normocephalic. CARDIOVASCULAR: Regular rate and rhythm. RESPIRATORY: No accessory muscle use. Mild wheezing. Breath sounds equal bilaterally. GASTROINTESTINAL: Abdomen soft, non-tender, distended. Positive bowel sounds. MUSCULOSKELETAL: Extremities without clubbing, cyanosis, or edema. No obvious deformities. NEUROLOGICAL: Awake and alert. PSYCHIATRIC: Appropriate mood and affect; insight and judgment good. <Max Mayen - Last Filed: 11/19/17 08:56> Vital signs: Vital Signs 11/18/17 19:43 11/19/17 00:00 11/19/17 03:53 Temperature 98.7 F 98.6 F 98.6 F Pulse Rate 103 H 87 89 Respiratory Rate 18 18 18 Blood Pressure 125/79 114/70 130/74 Pulse Oximetry 100 95 95 11/19/17 07:52 11/19/17 08:22 11/19/17 11:43 Temperature 98.2 F 98.8 F Pulse Rate 81 85 97 H Respiratory Rate 16 16 Blood Pressure 131/77 130/75 Pulse Oximetry 96 97 Intake & Output 11/18/17 11/19/17 11/19/17 18:59 06:59 18:59 Intake Total 750 / 750 Output Total 1500 / 1500 Balance -750 / -750 Intake: Other 750 / 750 Output: Urine 1500 / 1500 Other: Other Intake Source Saline Solution Date of Last Bowel Movement 11/17/17 11/17/17 11/19/17 <Verito Rosario - Last Filed: 11/19/17 15:48> Results - Labs CBC & Chem 7: 11/18/17 04:55 11/18/17 04:55 Microbiology 11/16/17 18:58 Stool Cryptosporidium Antigen - Final Negative - No Cryptosporicium antigen detected In selected cases of patients with a history of immunosuppression or foreign travel, a full ova and parasites examination may be desired. Contact the microbiology lab if full workup is indicated and subit another specimen for testing. 11/16/17 18:58 Stool Giardia Antigen (NATALIA) - Final Negative - No Giardia Antigen detected In selected cases of patients with a history of immunosuppression or foreign travel, a full ova and parasites examination may be desired. Contact the microbiology lab if full workup is indicated and subit another specimen for testing. 11/16/17 06:15 Blood - Peripheral Aerobic Blood Culture - Preliminary No growth in 2 days 11/16/17 06:15 Blood - Peripheral Anaerobic Blood Culture - Preliminary No growth in 2 days 11/16/17 06:10 Blood - Peripheral Aerobic Blood Culture - Preliminary No growth in 2 days 11/16/17 06:10 Blood - Peripheral Anaerobic Blood Culture - Preliminary No growth in 2 days - Imaging Impressions Neck Ultrasound 11/18/17 00:00 CONCLUSION: 1. Heterogeneous thyroid echotexture without focal nodule or thyroid enlargement. 2. No significant cervical adenopathy. Normal-appearing level 4 cervical nodes measuring up to 1.4 cm. <Max Mayen - Last Filed: 11/19/17 08:56> - Labs CBC & Chem 7: 11/18/17 04:55 11/18/17 04:55 Microbiology 11/16/17 06:15 Blood - Peripheral Aerobic Blood Culture - Preliminary No growth in 3 days 11/16/17 06:15 Blood - Peripheral Anaerobic Blood Culture - Preliminary No growth in 3 days 11/16/17 06:10 Blood - Peripheral Aerobic Blood Culture - Preliminary No growth in 3 days 11/16/17 06:10 Blood - Peripheral Anaerobic Blood Culture - Preliminary No growth in 3 days 11/16/17 18:58 Stool Cryptosporidium Antigen - Final Negative - No Cryptosporicium antigen detected In selected cases of patients with a history of immunosuppression or foreign travel, a full ova and parasites examination may be desired. Contact the microbiology lab if full workup is indicated and subit another specimen for testing. 11/16/17 18:58 Stool Giardia Antigen (NATALIA) - Final Negative - No Giardia Antigen detected In selected cases of patients with a history of immunosuppression or foreign travel, a full ova and parasites examination may be desired. Contact the microbiology lab if full workup is indicated and subit another specimen for testing. <Verito Rosario - Last Filed: 11/19/17 15:48> Assessment and Plan (1) Elevated liver enzymes Status: Acute Code(s): R74.8 - Abnormal levels of other serum enzymes (2) Abdominal bloating Status: Acute Code(s): R14.0 - Abdominal distension (gaseous) - Plan - Elevated LFTs- likely secondary to alcohol intake, She endorses drinking 2 beers daily Hepatitis panel negative, iron saturation 8, Fe 484, AFP normal. rest still pending Abdomen/Pelvis CT 11/17/17 00:00 1. Moderate to severe hepatic steatosis with no focal mass or ductal dilatation. 2. The known mass in the medial left lung base is again visualized. Please see CT angiogram report for further details. 3. Mild diverticulosis. 4. Bilateral fat-containing inguinal hernias. - Diarrhea X 2 months- Negative for C-diff, cx negative , improving with Lomotil but still has diarrhea if not taking the med Never had EGD/colonoscopy before. - mass or some sort of pulmonary sequestration. pulmonary consulted. PET/CT scan recommended to evaluate hypermetabolic activity. Bone scan negative for mets. CA 19-9 71, CEA normal Pulmonology on the case - Syncopal episodes- Possible erythremia, ECho normal, work up in processes - COPD, HTN per attending Plan: - Clears - Colonoscopy in the am - Consents - Golytely - NPO mn - Await rest of liver work up - Alcohol cessation - Supportive care - Pt seen and examined by Dr. Rosario and myself and this note is written on her behalf. <Max Mayen - Last Filed: 11/19/17 08:56> (1) Elevated liver enzymes Status: Acute Code(s): R74.8 - Abnormal levels of other serum enzymes (2) Abdominal bloating Status: Acute Code(s): R14.0 - Abdominal distension (gaseous) - Attending Attestation agree with above <Verito Rosario - Last Filed: 11/19/17 15:48>
--- NOTE | 2017-11-19 12:26 | P.PN ---
Subjective Interval history: Patient seen sitting up quietly in bed. She is feeling fine with no new complaints. Continues to have intermittent diarrhea without Lomotil. Now on clears due to planned GI procedure in the morning. No fever or chills. Still some intermittent sweating. Still bloated. No nausea or vomiting. Left-sided muscular chest pain improving. Chronic wheezing. Physical Exam Vital signs: Vital Signs 11/18/17 15:45 11/18/17 19:43 11/19/17 00:00 Temperature 98.7 F 98.7 F 98.6 F Pulse Rate 88 103 H 87 Respiratory Rate 20 18 18 Blood Pressure 133/82 125/79 114/70 Pulse Oximetry 95 100 95 11/19/17 03:53 11/19/17 07:52 11/19/17 08:22 Temperature 98.6 F 98.2 F Pulse Rate 89 81 85 Respiratory Rate 18 16 Blood Pressure 130/74 131/77 Pulse Oximetry 95 96 11/19/17 11:43 Temperature 98.8 F Pulse Rate 97 H Respiratory Rate 16 Blood Pressure 130/75 Pulse Oximetry 97 Intake & Output 11/18/17 11/19/17 11/19/17 18:59 06:59 18:59 Intake Total 750 / 750 Output Total 1500 / 1500 Balance -750 / -750 Intake: Other 750 / 750 Output: Urine 1500 / 1500 Other: Other Intake Source Saline Solution Date of Last Bowel Movement 11/17/17 11/17/17 Narrative: GENERAL: Moderately overweight W/ female in no obvious distress. HEAD: Atraumatic. Normocephalic. CARDIOVASCULAR: Regular rate and rhythm. RESPIRATORY: No accessory muscle use. Mild wheezing. Breath sounds equal bilaterally. GASTROINTESTINAL: Abdomen soft, non-tender, distended. Positive bowel sounds. MUSCULOSKELETAL: Extremities without clubbing, cyanosis, or edema. No obvious deformities. NEUROLOGICAL: Awake and alert. PSYCHIATRIC: Appropriate mood and affect; insight and judgment good. Results - Labs CBC & Chem 7: 11/18/17 04:55 11/18/17 04:55 Microbiology 11/16/17 06:15 Blood - Peripheral Aerobic Blood Culture - Preliminary No growth in 3 days 11/16/17 06:15 Blood - Peripheral Anaerobic Blood Culture - Preliminary No growth in 3 days 11/16/17 06:10 Blood - Peripheral Aerobic Blood Culture - Preliminary No growth in 3 days 11/16/17 06:10 Blood - Peripheral Anaerobic Blood Culture - Preliminary No growth in 3 days 11/16/17 18:58 Stool Cryptosporidium Antigen - Final Negative - No Cryptosporicium antigen detected In selected cases of patients with a history of immunosuppression or foreign travel, a full ova and parasites examination may be desired. Contact the microbiology lab if full workup is indicated and subit another specimen for testing. 11/16/17 18:58 Stool Giardia Antigen (NATALIA) - Final Negative - No Giardia Antigen detected In selected cases of patients with a history of immunosuppression or foreign travel, a full ova and parasites examination may be desired. Contact the microbiology lab if full workup is indicated and subit another specimen for testing. Assessment and Plan - Assessment (1) Syncope Code(s): R55 - Syncope and collapse Status: Acute (2) Arrhythmia Code(s): I49.9 - Cardiac arrhythmia, unspecified Status: Acute (3) Lung mass Code(s): R91.8 - Other nonspecific abnormal finding of lung field Status: Acute (4) Transaminitis Code(s): R74.0 - Nonspecific elevation of levels of transaminase and lactic acid dehydrogenase [LDH] Status: Acute (5) Abdominal bloating Code(s): R14.0 - Abdominal distension (gaseous) Status: Acute - Plan 57-year-old female admitted secondary to syncopal episode Syncope; resolved Echo and carotids -grossly normal Head CT neg for acute process Follow on telemetry Lung Mass Present on CTA of chest May be congenital based on history NM Bone scan added for further evaluation of metabolic activity -negative for metastases Wheezing-add nebulizers Pulmonary consulted -they are considering pulmonary sequestration. No intervention needed at this time. Chronic Diarrhea Screen for C. Diff -negative Screen for O&P -initially incorrectly read as positive; O&P is negative Follow electrolytes Transaminitis and bloating Abdominal CT ordered to evaluate -mild fatty liver and diverticulitis. GI consulted -plan colonoscopy Monday. Chronic Diaphoresis TSH is within normal limits; ultrasound of thyroid grossly normal Screen for tick bourne illnesses Sinus congestion Bronchitis Levaquin added by Pulmonary on 11/17. Antihistamine Antitussive PRN Hypertension Follow blood pressures Adjust treatments as needed As needed Vasotec IV Add amlodipine 5mg on 11/18; consider HCTZ if not adequate COPD As needed nebs No exacerbation DVT prophylaxis SCDs Discussed with: Patient, nurse
--- NOTE | 2017-11-19 15:39 | P.PN ---
Subjective Interval history: Has some loose stools. Off O2 . C/O wheezing still . No chest pains . Will go for Colonoscopy. Physical Exam Vital signs: Vital Signs 11/18/17 15:45 11/18/17 19:43 11/19/17 00:00 Temperature 98.7 F 98.7 F 98.6 F Pulse Rate 88 103 H 87 Respiratory Rate 20 18 18 Blood Pressure 133/82 125/79 114/70 Pulse Oximetry 95 100 95 11/19/17 03:53 11/19/17 07:52 11/19/17 08:22 Temperature 98.6 F 98.2 F Pulse Rate 89 81 85 Respiratory Rate 18 16 Blood Pressure 130/74 131/77 Pulse Oximetry 95 96 11/19/17 11:43 Temperature 98.8 F Pulse Rate 97 H Respiratory Rate 16 Blood Pressure 130/75 Pulse Oximetry 97 Intake & Output 11/18/17 11/19/17 11/19/17 18:59 06:59 18:59 Intake Total 750 / 750 Output Total 1500 / 1500 Balance -750 / -750 Intake: Other 750 / 750 Output: Urine 1500 / 1500 Other: Other Intake Source Saline Solution Date of Last Bowel Movement 11/17/17 11/17/17 11/19/17 Narrative: GENERAL: Moderately overweight W/ female in no obvious distress. HEAD: Atraumatic. Normocephalic. CARDIOVASCULAR: Regular rate and rhythm. RESPIRATORY: No accessory muscle use. Mild wheezing. Breath sounds equal bilaterally. GASTROINTESTINAL: Abdomen soft, non-tender, distended. Positive bowel sounds.No organomegaly MUSCULOSKELETAL: Extremities without clubbing, cyanosis, or edema. No obvious deformities. NEUROLOGICAL: Awake and alert. PSYCHIATRIC: Appropriate mood and affect; insight and judgment good. Results - Labs CBC & Chem 7: 11/18/17 04:55 11/18/17 04:55 Microbiology 11/16/17 06:15 Blood - Peripheral Aerobic Blood Culture - Preliminary No growth in 3 days 11/16/17 06:15 Blood - Peripheral Anaerobic Blood Culture - Preliminary No growth in 3 days 11/16/17 06:10 Blood - Peripheral Aerobic Blood Culture - Preliminary No growth in 3 days 11/16/17 06:10 Blood - Peripheral Anaerobic Blood Culture - Preliminary No growth in 3 days 11/16/17 18:58 Stool Cryptosporidium Antigen - Final Negative - No Cryptosporicium antigen detected In selected cases of patients with a history of immunosuppression or foreign travel, a full ova and parasites examination may be desired. Contact the microbiology lab if full workup is indicated and subit another specimen for testing. 11/16/17 18:58 Stool Giardia Antigen (NATALIA) - Final Negative - No Giardia Antigen detected In selected cases of patients with a history of immunosuppression or foreign travel, a full ova and parasites examination may be desired. Contact the microbiology lab if full workup is indicated and subit another specimen for testing. 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 Status: Acute (2) Near syncope Code(s): R55 - Syncope and collapse Status: Acute (3) Arrhythmia Code(s): I49.9 - Cardiac arrhythmia, unspecified Status: Acute (4) Lung mass Code(s): R91.8 - Other nonspecific abnormal finding of lung field Status: Acute (5) Syncope Code(s): R55 - Syncope and collapse Status: Acute (6) Elevated liver enzymes Code(s): R74.8 - Abnormal levels of other serum enzymes Status: Acute (7) Abdominal bloating Code(s): R14.0 - Abdominal distension (gaseous) Status: Acute (8) Transaminitis Code(s): R74.0 - Nonspecific elevation of levels of transaminase and lactic acid dehydrogenase [LDH] Status: Acute (9) Asthmatic bronchitis Code(s): J45.909 - Unspecified asthma, uncomplicated Status: Acute (10) Hypertension Code(s): I10 - Essential (primary) hypertension Status: Acute - Plan 1. Will get prior CT results and compare. 2. Continue levaquin for 3 days. 3. Duoneb nebs tid and PRN 4. Breo 100 mcg , 1 puff daily. 5. Colonoscopy in am. 6. Home when BP controlled
[2017-11-19] MEDS ORDERED: PEG 3350/E-Lyte Soln 4000 ML Bottle PO ONE (16:00)
[2017-11-19] MEDS: Melatonin 5 MG Tablet PO PRN (21:36)
[2017-11-20 07:54] VITALS: O2SAT 98
[2017-11-20] MEDS: Loratadine 10 MG Tablet PO SCH (08:21)
[2017-11-20] MEDS: levoFLOXacin 750 MG Tablet PO SCH (08:22)
[2017-11-20] MEDS: Sodium Chloride 0.9% 2 ML Flush BID IV.FLUSH SCH (08:22)
[2017-11-20] MEDS: amLODIPine 5 MG Tablet PO SCH (08:22)
[2017-11-20] MEDS ORDERED: Benzocaine/Menthol 15 MG/3.6 MG SF Lozenge BUCCAL PRN (10:03)
[2017-11-20] MEDS ORDERED: Lidocaine PF 1% Inj 5 ML Syringe OTHER ONE (11:01)
--- NOTE | 2017-11-20 11:24 | GIPROC ---
[facility] [address] [facility]. [facility], [address] COLONOSCOPY PROCEDURE REPORT EXAM DATE: 11/20/2017 PATIENT NAME: Cynthia Almeida MR #: [id number] BIRTHDATE: 1960 ENDOSCOPIST: Verito Rosario MD ORDER #: [id number] SYSTEM DEVELOPMENT ENGINEER: Mallika Richardson and Yesica Zaragoza STATUS: inpatient INDICATIONS: The patient is a 57 yr old female here for a colonoscopy due to diarrhea PROCEDURE PERFORMED: Colonoscopy with polypectomy Colonoscopy with biopsy MEDICATIONS: None and Per Anesthesia. PREP QUALITY: good PREP TYPE:Other: ESTIMATED BLOOD LOSS: None CONSENT: The patient understands the risks and benefits of the procedure and understands that these risks include, but are not limited to: sedation, allergic reaction, infection, perforation and/or bleeding. Alternative means of evaluation and treatment include, among others: physical exam, x-rays, and/or surgical intervention. The patient elects to proceed with this endoscopic procedure. medical equipment was checked for proper function. Hand hygiene and appropriate measures for infection prevention was taken. After the risks, benefits and alternatives of the procedure were thoroughly explained, Informed consent was verified, confirmed and timeout was successfully executed by the treatment team. A digital exam revealed external hemorrhoids The Pentax [id number] endoscope was introduced through the anus and advanced to the cecum, which was identified by both the appendix and ileocecal valve. The instrument was then slowly withdrawn as the colon was fully examined. COLON FINDINGS: Diverticulosis sigmoid,descending random biopsy from ascending, descending to r/o microscopic colitis polyp pedunculated sigmoid-8 mm-hot snare polypectomy with complete removal. Retroflexed views revealed internal hemorrhoids and Retroflexed views revealed medium internal hemorrhoids The scope was then completely withdrawn from the patient and the procedure terminated. PROCEDURE WITHDRAWAL TIME:6minutes ADVERSE EVENTS: There were no complications. IMPRESSIONS: 1. Diverticulosis sigmoid,descending random biopsy from ascending, descending to r/o microscopic colitis polyp pedunculated sigmoid-8 mm-hot snare polypectomy with complete removal 2. Retroflexed views revealed internal hemorrhoids 3. Retroflexed views revealed medium internal hemorrhoids 4. Revealed external hemorrhoids RECOMMENDATIONS: 1. Await biopsy results. Biopsy results will not be ready for 7-10 days. If you don't hear from us in two weeks, call our office for results. 2. Benefiber 2 tsp daily 3. Probiotics from any [employer] or health food store 4. Ok to ut home from [facility] 2 weeks RECALL: Return 3 years Colonoscopy Verito Rosario MD eSigned: Verito Rosario MD 11/20/2017 11:24 AM cc: PATIENT NAME: Cynthia Almeida MR#: [id number]
[2017-11-20 11:39] VITALS: BP 128/89; PULSE 88; RESP 18; TEMP 97.3
--- NOTE | 2017-11-20 17:59 | P.DS ---
Date of admission: 11/16/17 09:49 Primary care physician: UNKNOWN Attending physician on discharge: Anel Cortes Anticipated date of discharge: 11/20/17 Brief History from admission: Mrs Almeida is a 57 year old female. She has a history of HTN and COPD. 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 She is here due to a syncopal episode, which caused her some chest trauma during the fall forward. She also reports that she has been having frequent diarrhea for about 2 months. She also has persistent diaphoresis. Joni, and possibly related to her syncopal episode, she is developed bilateral ear congestion and a cough. 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 This may be responsible for a mass/anomaly seen on CTA imaging. TSH is within normal limits. Slight elevations in LFTs (drinks 2 beers per day). No other complaints. Patient update on day of discharge: Patient seen immediately post colonoscopy. She tells me that she feel fine with no new concerns. Chest tenderness has improved greatly. She also feels like her breathing is much better. Diarrhea has mostly resolved with Lomotil. No nausea or vomiting. She really would like to go home and go back to work if possible. 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 No head injury. Initial imaging of the chest showed a mass in her lungs. This was evaluated and was found to be sequestrated tissue; bone scan was negative for metastases. Additional diagnosis of bronchitis exacerbated by chronic COPD which has not been treated due to patient's financial status. Patient treated with Levaquin and DuoNeb's. Unable to afford inhalers. patient had an additional complaint of chronic bloating and diarrhea going on for over 2 months -stool studies were negative for infectious cause. Colonoscopy done 11/20/17 indicated colitis. She was also experiencing episodes of diaphoresis and shortness of breath. Noted to be hypertensive and started on Norvasc. - Time Spent with Patient Total time spent providing and/or coordinating discharge services: Less than 30 minutes - Quality: VTE Deep Vein Thrombosis/Pulmonary Embolism Present on Admission: No Exam Vital signs: Vital Signs 11/19/17 20:00 11/20/17 00:00 11/20/17 04:00 Temperature 98.1 F 97.9 F 97.6 F Pulse Rate 80 80 87 Respiratory Rate 16 20 21 Blood Pressure 141/81 H 111/60 125/81 Pulse Oximetry 99 99 96 11/20/17 07:53 11/20/17 08:03 11/20/17 11:33 Temperature 98.5 F 97.3 F L Pulse Rate 78 77 88 Respiratory Rate 16 18 Blood Pressure 137/83 128/89 Pulse Oximetry 98 98 Intake & Output 11/19/17 11/20/17 11/20/17 18:59 06:59 18:59 Intake Total 300 / 300 Balance 300 / 300 Weight 96.16 kg Intake: Anesthesia Amount 300 / 300 Other: # Voids 2 2 Date of Last Bowel Movement 11/19/17 11/19/17 Narrative: GENERAL: Moderately overweight W/ female in no obvious distress. HEAD: Atraumatic. Normocephalic. CARDIOVASCULAR: Regular rate and rhythm. RESPIRATORY: No accessory muscle use. Mild wheezing. Breath sounds equal bilaterally. GASTROINTESTINAL: Abdomen soft, non-tender, distended. Positive bowel sounds. MUSCULOSKELETAL: Extremities without clubbing, cyanosis, or edema. No obvious deformities. NEUROLOGICAL: Awake and alert. PSYCHIATRIC: Appropriate mood and affect; insight and judgment good. Results Procedures completed during hospitalization: Colonoscopy 11/20/17-8 mm polyp removed; colitis Pending studies at discharge: Pending at discharge 11/20/17 14:43 Surgical [PTH] Routine Labs on day of discharge: Preliminary micro results at discharge 11/16/17 06:15 Aerobic Blood Culture - Preliminary Blood - Peripheral No growth in 4 days Anaerobic Blood Culture - Preliminary No growth in 4 days 11/16/17 06:10 Aerobic Blood Culture - Preliminary Blood - Peripheral No growth in 4 days Anaerobic Blood Culture - Preliminary No growth in 4 days - Impressions ITS Impressions Carotid Doppler Study 11/16/17 00:00 CONCLUSION: No hemodynamic significant stenosis in either carotid artery Head CT 11/16/17 05:58 CONCLUSION: No acute intracranial abnormality is identified. . Ribs X-Ray 11/16/17 06:21 CONCLUSION: 1. No rib fracture is identified. 2. Retrocardiac opacity at the left lung base may represent a hiatal hernia but imaging features are not diagnostic on this examination. Suggest correlating with any prior outside chest CTs to exclude a more concerning abnormality. If none are available consider elective noncontrast chest CT at some point. Chest CTA 11/16/17 07:56 CONCLUSION: 1. Masslike opacity in the left lower lobe abutting the medial pleura/ posterior mediastinum. This could be related to a mass or some sort of pulmonary sequestration. PET/CT scan recommended to evaluate hypermetabolic activity. 2. Consolidation right middle lobe likely infiltrate. 3. No evidence for pulmonary embolism. Abdomen/Pelvis CT 11/17/17 00:00 CONCLUSION: 1. Moderate to severe hepatic steatosis with no focal mass or ductal dilatation. 2. The known mass in the medial left lung base is again visualized. Please see CT angiogram report for further details. 3. Mild diverticulosis. 4. Bilateral fat-containing inguinal hernias. Bone Scan Nuclear Medicine 11/17/17 00:00 CONCLUSION: 1. Negative whole body bone scan of metastatic disease Chest X-Ray 11/18/17 00:00 CONCLUSION: No acute findings. Minimal linear atelectasis or scarring at the left lung base. Neck Ultrasound 11/18/17 00:00 CONCLUSION: 1. Heterogeneous thyroid echotexture without focal nodule or thyroid enlargement. 2. No significant cervical adenopathy. Normal-appearing level 4 cervical nodes measuring up to 1.4 cm. Discharge Plan - Discharge Disposition Patient Disposition: 01 Discharge Home - Discharge Condition Condition: Stable - Discharge Order Discharge Orders: Discharge Order (Routine); Ordered 11/20/17 Ordered By: Makayla Rodrigez - Discharge Details Discharge Comment: OK to d/c once cleared by GI - Physicians Team Primary Care Provider: UNKNOWN, Attending Provider: Anel Corets Other Providers: Bobbi Durant MD ; Kareem Aquino MD
--- NOTE | 2017-11-21 10:04 | P.PN ---
Subjective Interval history: Pt was off O2 and will go home on PO meds .Was seen on 11/20/17 Did well on Ventolin inhaler and Breo Needs PET CT as OP Physical Exam Vital signs: Vital Signs 11/20/17 11:33 Temperature 97.3 F L Pulse Rate 88 Respiratory Rate 18 Blood Pressure 128/89 Pulse Oximetry 98 Intake & Output 11/20/17 11/21/17 11/21/17 18:59 06:59 18:59 Intake Total 300 / 300 Balance 300 / 300 Intake: Anesthesia Amount 300 / 300 Narrative: GENERAL: Moderately overweight W/ female in no distress. HEAD: Atraumatic. Normocephalic. CARDIOVASCULAR: Regular rate and rhythm. RESPIRATORY: Mild wheezing. Breath sounds equal bilaterally. GASTROINTESTINAL: Abdomen soft, non-tender, distended. Positive bowel sounds. MUSCULOSKELETAL: Extremities without clubbing, cyanosis, or edema. No obvious deformities. NEUROLOGICAL: Awake and alert. No deficits PSYCHIATRIC: Appropriate mood and affect. Results - Labs CBC & Chem 7: 11/18/17 04:55 11/18/17 04:55 Microbiology 11/16/17 06:15 Blood - Peripheral Aerobic Blood Culture - Preliminary No growth in 4 days 11/16/17 06:15 Blood - Peripheral Anaerobic Blood Culture - Preliminary No growth in 4 days 11/16/17 06:10 Blood - Peripheral Aerobic Blood Culture - Preliminary No growth in 4 days 11/16/17 06:10 Blood - Peripheral Anaerobic Blood Culture - Preliminary No growth in 4 days - Procedures Colonoscopy 11/20/17-8 mm polyp removed; colitis 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 Status: Chronic (2) Near syncope Code(s): R55 - Syncope and collapse Status: Acute (3) Lung mass Code(s): R91.8 - Other nonspecific abnormal finding of lung field Status: Chronic (4) Elevated liver enzymes Code(s): R74.8 - Abnormal levels of other serum enzymes Status: Acute (5) Transaminitis Code(s): R74.0 - Nonspecific elevation of levels of transaminase and lactic acid dehydrogenase [LDH] Status: Chronic (6) Asthmatic bronchitis Code(s): J45.909 - Unspecified asthma, uncomplicated Status: Acute (7) Hypertension Code(s): I10 - Essential (primary) hypertension Status: Chronic - Plan 1. Will Arrange a PET CT as OP in 2 weeks 2. Continue levaquin for 2 days. 3. D/C Duoneb nebs 4. Breo 100 mcg , 1 puff daily. 5. Home on PO Meds 6.Will see as OP in 2 weeks. D/W Patient
[2017-11-21 13:39] LABS: Smooth Muscle Total Auto Abs Negative (Negative)
[2017-11-21 19:52] LABS: Hepatitis Be Antigen NONREACTIVE
[2017-11-21 23:53] LABS: Lyme Ab 18KD IgG WB NON-REACTIVE; Lyme Ab 23KD IgG WB NON-REACTIVE; Lyme Ab 23KD IgM WB NON-REACTIVE; Lyme Ab 28KD IgG WB NON-REACTIVE; Lyme Ab 30KD IgG WB NON-REACTIVE; Lyme Ab 39KD IgG WB NON-REACTIVE; Lyme Ab 39KD IgM WB NON-REACTIVE; Lyme Ab 41KD IgG WB NON-REACTIVE; Lyme Ab 41KD IgM WB NON-REACTIVE; Lyme Ab 45KD IgG WB NON-REACTIVE; Lyme Ab 58KD IgG WB NON-REACTIVE; Lyme Ab 66KD IgG WB NON-REACTIVE; Lyme Ab 93KD IgG WB NON-REACTIVE
[2017-11-22 17:51] LABS: Ceruloplasmin 22 mg/dL (18-53)
[2017-11-23 03:50] LABS: DS DNA Ab (Crithidia) NEGATIVE (NEGATIVE)
== END 2017-11-20 14:53 | disposition home or self-care (01) ==
LOC: NEDA 05:17 → NEPC 05:17 → NEPFCDU 10:35
PROVIDERS: ADMIT Family Medicine; ATTEND Family Medicine
PROC: COLONOS (2017-11-20 11:01)